=== PATIENT | female | born 1965 | race Caucasian/White ===

== ENCOUNTER 2021-03-30 14:05 | Inpatient (IN) ==
[2021-03-30 14:54] LABS: Basophils # 0.1 K/mcL (0.0-0.2); Basophils % 0.3 %; Eosinophils # 0.3 K/mcL (0.0-0.6); Eosinophils % 2.1 %; Hematocrit 43.3 % (35.3-44.9); Hemoglobin 14.3 g/dL (11.5-15.4); Immature Granulocytes % 0.6 % (0-4); Lymphocytes # 2.5 K/mcL (0.6-4.6); Lymphocytes % 16.2 %; Mean Corpuscular Hemoglobin 29.8 pg (28.0-33.3); Mean Corpuscular Volume 90.2 fL (83.0-100.0); Mean Platelet Volume 9.4 fL (9.4-12.4); Monocytes # 0.8 K/mcL (0.0-1.3); Monocytes % 5.2 %; Neutrophils # 11.7 K/mcL (1.6-8.9); Platelet Count 421 K/mcL (140-400); Red Cell Distribution Width 13.1 % (11.5-14.5); Segmented Neutrophils % 75.6 %; White Blood Count 15.5 K/mcL (4.3-11.1)
[2021-03-30 15:15] LABS: BUN/Creatinine Ratio 17 (6-26); Blood Urea Nitrogen 17 mg/dL (6-20); Calcium 9.2 mg/dL (8.6-10.3); Carbon Dioxide 26 mEq/L (23-29); Chloride 102 mEq/L (98-107); Glucose 101 mg/dL (70-105); Osmolality,Calculated 286 (280-300); Potassium 4.3 mEq/L (3.5-5.1); Sodium 137 mEq/L (136-145); eGFR For African Americans > 60 (> 60); eGFR For Non-African Americans 58 (> 60)
[2021-03-30] MEDS ORDERED: Isovue-370 500 ML BOTTLE IVP ONE (16:58)
[2021-03-30] MEDS ORDERED: *HR* FentaNYL (PF) 100 MCG/2 ML VIAL IVP ONE (17:00)
[2021-03-30] MEDS ORDERED: 0.9 % Sodium Chloride 1,000 ML IVC ONE (17:01)
[2021-03-30 17:43] LABS: Uric Acid 5.8 mg/dL (2.3-7.6)
[2021-03-30] MEDS ORDERED: *HR* HYDROmorphone (PF) 1 MG/ML SYRINGE IVP ONE (18:40)
[2021-03-30] MEDS ORDERED: Piperacillin/Tazobactam 3.375 GM in 0.9 % Sodium Chloride Mini Bag 100 ML IVPB ONE (18:41)
[2021-03-30] MEDS ORDERED: Acetaminophen 325 MG TABLET PO PRN (22:52)
[2021-03-30] MEDS ORDERED: Naloxone 0.4 MG/ML INJ IVP PRN (22:52)
[2021-03-30] MEDS ORDERED: Melatonin 3 MG TABLET PO PRN (22:52)
[2021-03-30] MEDS ORDERED: Gabapentin 300 MG CAPSULE PO PRN (22:55)
[2021-03-30] MEDS ORDERED: Dextrose Gel 15 GM/37.5 ML TUBE PO PRN ×2 (22:56)
[2021-03-30] MEDS ORDERED: D5% in Water 1,000 ML IVC PRN (22:56)
[2021-03-30] MEDS ORDERED: *HR* Dextrose 50 % in Water (Vial) 50 ML VIAL IVP PRN (22:56)
[2021-03-30] MEDS ORDERED: tiZANidine 4 MG TABLET PO PRN (23:04)
[2021-03-30] MEDS: Piperacillin/Tazobactam 3.375 GM in 0.9 % Sodium Chloride Mini Bag 100 ML IVPB SCH (23:16)
[2021-03-30] MEDS: Insulin LISPRO 300 UNITS/3 ML VIAL SUBQ SCH (23:17)
[2021-03-31] MEDS: *HR* OxyCODONE Immed Rel 5 MG TABLET PO PRN ×3 (01:24→20:33)
[2021-03-31 02:04] LABS: Basophils # 0.1 K/mcL (0.0-0.2); Basophils % 0.5 %; Eosinophils # 0.3 K/mcL (0.0-0.6); Eosinophils % 1.8 %; Hematocrit 37.7 % (35.3-44.9); Hemoglobin 12.4 g/dL (11.5-15.4); Immature Granulocytes % 0.8 % (0-4); Lymphocytes # 2.1 K/mcL (0.6-4.6); Lymphocytes % 13.5 %; Mean Corpuscular HGB Conc 32.9 g/dL (31.6-35.5); Mean Corpuscular Volume 91.1 fL (83.0-100.0); Mean Platelet Volume 9.8 fL (9.4-12.4); Monocytes # 0.9 K/mcL (0.0-1.3); Monocytes % 5.8 %; Neutrophils # 12.1 K/mcL (1.6-8.9); Platelet Count 348 K/mcL (140-400); Red Blood Count 4.14 M/mcL (3.82-4.97); Red Cell Distribution Width 13.2 % (11.5-14.5); Segmented Neutrophils % 77.6 %; White Blood Count 15.5 K/mcL (4.3-11.1)
[2021-03-31 02:08] LABS: INR 1.2; Prothrombin Time 13.7 Seconds (9.4-12.1)
[2021-03-31 02:18] LABS: BUN/Creatinine Ratio 17 (6-26); Blood Urea Nitrogen 16 mg/dL (6-20); Calcium 8.2 mg/dL (8.6-10.3); Carbon Dioxide 25 mEq/L (23-29); Chloride 103 mEq/L (98-107); Glucose 147 mg/dL (70-105); Osmolality,Calculated 288 (280-300); Potassium 3.8 mEq/L (3.5-5.1); Sodium 137 mEq/L (136-145); eGFR For African Americans > 60 (> 60); eGFR For Non-African Americans > 60 (> 60)
[2021-03-31] MEDS: *HR* HYDROcodone/Acet 5/325 mg TABLET PO PRN ×3 (05:42→23:03)
[2021-03-31] MEDS: Insulin LISPRO 300 UNITS/3 ML VIAL SUBQ SCH ×4 (05:42→20:37)
[2021-03-31] MEDS ORDERED: Bupivacaine/Clonidine Syringe 20 ML, Syringe LUER-LOK 1 EACH TP ONE (07:45)
[2021-03-31] MEDS: Piperacillin/Tazobactam 3.375 GM in 0.9 % Sodium Chloride Mini Bag 100 ML IVPB SCH ×3 (08:21→23:01)
[2021-03-31] MEDS: Ondansetron 4 MG/2 ML VIAL IVP PRN ×2 (08:45→17:55)
[2021-03-31] MEDS ORDERED: BuPROPion SR (12 HR) 150 MG TABLET PO SCH (09:00)
[2021-03-31] MEDS ORDERED: BISOPROLOL FUMARATE 10 MG PO SCH (09:00)
[2021-03-31] MEDS ORDERED: Lisinopril-HCTZ 20-12.5mg TABLET PO SCH (09:00)
[2021-03-31 11:44] LABS: Estimated Average Glucose 157 mg/dl; Hemoglobin A1C 7.1 %
[2021-03-31] MEDS ORDERED: Nitroglycerin 0.4 MG TAB.SUBL SL PRN ×2 (12:31→18:10)
[2021-03-31] MEDS ORDERED: Naloxone 0.4 MG/ML INJ IVP PRN ×3 (12:31→18:10)
[2021-03-31] MEDS ORDERED: Lidocaine -MPF 2% 2 ML VIAL ONE (12:32)
[2021-03-31] MEDS ORDERED: *HR* FentaNYL (PF) 100 MCG/2 ML VIAL ONE (13:19)
[2021-03-31] MEDS ORDERED: *HR* Midazolam HCl 2 MG/2 ML VIAL ONE (13:46)
[2021-03-31] MEDS ORDERED: *HR* Propofol 200 MG/20 ML VIAL IVP ONE (14:20)
[2021-03-31] MEDS ORDERED: D5% in Water 1,000 ML IVC PRN (18:10)
[2021-03-31] MEDS ORDERED: Melatonin 3 MG TABLET PO PRN (18:10)
[2021-03-31] MEDS ORDERED: Acetaminophen 325 MG TABLET PO PRN (18:10)
[2021-03-31] MEDS ORDERED: Dextrose Gel 15 GM/37.5 ML TUBE PO PRN ×2 (18:10)
[2021-03-31] MEDS ORDERED: *HR* Dextrose 50 % in Water (Vial) 50 ML VIAL IVP PRN (18:10)
[2021-03-31] MEDS: BuPROPion SR (12 HR) 150 MG TABLET PO SCH (20:33)
[2021-04-01] MEDS ORDERED: Insulin LISPRO 300 UNITS/3 ML VIAL SUBQ SCH
[2021-04-01] MEDS: *HR* OxyCODONE Immed Rel 5 MG TABLET PO PRN ×5 (02:38→20:54)
[2021-04-01] MEDS: *HR* HYDROcodone/Acet 5/325 mg TABLET PO PRN (05:08)
[2021-04-01] MEDS: Insulin LISPRO 300 UNITS/3 ML VIAL SUBQ SCH ×4 (07:32→20:55)
[2021-04-01] MEDS: BuPROPion SR (12 HR) 150 MG TABLET PO SCH ×2 (07:49→20:54)
[2021-04-01] MEDS: Lisinopril-HCTZ 20-12.5mg TABLET PO SCH (07:49)
[2021-04-01] MEDS: BISOPROLOL FUMARATE 10 MG PO SCH (07:50)
[2021-04-01] MEDS: Piperacillin/Tazobactam 3.375 GM in 0.9 % Sodium Chloride Mini Bag 100 ML IVPB SCH ×3 (07:50→22:56)
[2021-04-01 10:30] LABS: Basophils % 0.3 %; Eosinophils # 0.2 K/mcL (0.0-0.6); Eosinophils % 1.6 %; Hematocrit 39.2 % (35.3-44.9); Immature Granulocytes % 0.5 % (0-4); Lymphocytes # 1.4 K/mcL (0.6-4.6); Lymphocytes % 10.5 %; Mean Corpuscular HGB Conc 33.2 g/dL (31.6-35.5); Mean Corpuscular Hemoglobin 29.7 pg (28.0-33.3); Mean Corpuscular Volume 89.7 fL (83.0-100.0); Mean Platelet Volume 9.6 fL (9.4-12.4); Monocytes # 0.7 K/mcL (0.0-1.3); Monocytes % 5.2 %; Neutrophils # 10.9 K/mcL (1.6-8.9); Platelet Count 380 K/mcL (140-400); Red Blood Count 4.37 M/mcL (3.82-4.97); Red Cell Distribution Width 12.8 % (11.5-14.5); Segmented Neutrophils % 81.9 %; White Blood Count 13.3 K/mcL (4.3-11.1)
[2021-04-01 10:44] LABS: BUN/Creatinine Ratio 15 (6-26); Blood Urea Nitrogen 13 mg/dL (6-20); Calcium 8.8 mg/dL (8.6-10.3); Carbon Dioxide 26 mEq/L (23-29); Chloride 102 mEq/L (98-107); Glucose 157 mg/dL (70-105); Magnesium 1.6 mg/dL (1.6-2.6); Osmolality,Calculated 285 (280-300); Potassium 3.9 mEq/L (3.5-5.1); Sodium 136 mEq/L (136-145); Vancomycin,Trough 8 mcg/mL (5-10); eGFR For African Americans > 60 (> 60); eGFR For Non-African Americans > 60 (> 60)
[2021-04-01] MEDS ORDERED: Ibuprofen 400 MG TABLET PO PRN (11:01)
[2021-04-01] MEDS: Ketorolac 15 MG/ML VIAL IVP PRN ×2 (13:53→22:17)
[2021-04-01] MEDS: *HR* Heparin 5,000 UNIT/ML VIAL SQ SCH (16:42)
[2021-04-01] MEDS: tiZANidine 4 MG TABLET PO PRN (20:54)
[2021-04-01] MEDS: Melatonin 3 MG TABLET PO SCH (20:54)
[2021-04-01] MEDS: Ondansetron 4 MG/2 ML VIAL IVP PRN (21:34)
[2021-04-02 01:34] LABS: Basophils % 0.3 %; Eosinophils # 0.3 K/mcL (0.0-0.6); Eosinophils % 2.3 %; Hematocrit 35.8 % (35.3-44.9); Immature Granulocytes % 0.5 % (0-4); Lymphocytes # 2.4 K/mcL (0.6-4.6); Lymphocytes % 19.6 %; Mean Corpuscular HGB Conc 33.5 g/dL (31.6-35.5); Mean Corpuscular Volume 89.5 fL (83.0-100.0); Mean Platelet Volume 9.4 fL (9.4-12.4); Monocytes # 0.7 K/mcL (0.0-1.3); Monocytes % 5.9 %; Neutrophils # 8.9 K/mcL (1.6-8.9); Platelet Count 348 K/mcL (140-400); Red Cell Distribution Width 12.5 % (11.5-14.5); Segmented Neutrophils % 71.4 %; White Blood Count 12.4 K/mcL (4.3-11.1)
[2021-04-02 01:55] LABS: BUN/Creatinine Ratio 22 (6-26); Blood Urea Nitrogen 21 mg/dL (6-20); Calcium 8.6 mg/dL (8.6-10.3); Carbon Dioxide 25 mEq/L (23-29); Chloride 105 mEq/L (98-107); Glucose 116 mg/dL (70-105); Magnesium 1.6 mg/dL (1.6-2.6); Osmolality,Calculated 288 (280-300); Sodium 137 mEq/L (136-145); eGFR For African Americans > 60 (> 60); eGFR For Non-African Americans > 60 (> 60)
[2021-04-02] MEDS: *HR* OxyCODONE Immed Rel 5 MG TABLET PO PRN ×4 (03:08→19:25)
[2021-04-02] MEDS: Ondansetron 4 MG/2 ML VIAL IVP PRN ×2 (03:45→13:42)
[2021-04-02] MEDS: *HR* Heparin 5,000 UNIT/ML VIAL SQ SCH ×2 (05:23→17:52)
[2021-04-02] MEDS: Insulin LISPRO 300 UNITS/3 ML VIAL SUBQ SCH ×4 (08:03→20:36)
[2021-04-02] MEDS: Piperacillin/Tazobactam 3.375 GM in 0.9 % Sodium Chloride Mini Bag 100 ML IVPB SCH ×3 (09:14→23:15)
[2021-04-02] MEDS: Lisinopril-HCTZ 20-12.5mg TABLET PO SCH (09:15)
[2021-04-02] MEDS: BISOPROLOL FUMARATE 10 MG PO SCH (09:15)
[2021-04-02] MEDS: BuPROPion SR (12 HR) 150 MG TABLET PO SCH ×2 (09:15→20:37)
[2021-04-02] MEDS: Ketorolac 15 MG/ML VIAL IVP PRN ×2 (11:17→20:37)
[2021-04-02] MEDS: tiZANidine 4 MG TABLET PO PRN ×2 (13:43→20:37)
[2021-04-02] MEDS: Melatonin 3 MG TABLET PO SCH (20:37)
[2021-04-03] MEDS: *HR* OxyCODONE Immed Rel 5 MG TABLET PO PRN ×5 (01:58→20:14)
[2021-04-03] MEDS: tiZANidine 4 MG TABLET PO PRN ×3 (03:25→20:15)
[2021-04-03] MEDS: *HR* Heparin 5,000 UNIT/ML VIAL SQ SCH ×2 (05:09→17:34)
[2021-04-03 06:26] LABS: Basophils % 0.4 %; Eosinophils # 0.3 K/mcL (0.0-0.6); Eosinophils % 2.9 %; Hematocrit 37.4 % (35.3-44.9); Hemoglobin 12.6 g/dL (11.5-15.4); Immature Granulocytes % 0.5 % (0-4); Lymphocytes # 1.8 K/mcL (0.6-4.6); Lymphocytes % 16.3 %; Mean Corpuscular HGB Conc 33.7 g/dL (31.6-35.5); Mean Corpuscular Hemoglobin 29.9 pg (28.0-33.3); Mean Corpuscular Volume 88.8 fL (83.0-100.0); Mean Platelet Volume 9.2 fL (9.4-12.4); Monocytes # 0.7 K/mcL (0.0-1.3); Monocytes % 5.8 %; Neutrophils # 8.4 K/mcL (1.6-8.9); Platelet Count 336 K/mcL (140-400); Red Blood Count 4.21 M/mcL (3.82-4.97); Red Cell Distribution Width 12.5 % (11.5-14.5); Segmented Neutrophils % 74.1 %; White Blood Count 11.3 K/mcL (4.3-11.1)
[2021-04-03 07:07] LABS: BUN/Creatinine Ratio 25 (6-26); Blood Urea Nitrogen 22 mg/dL (6-20); Carbon Dioxide 24 mEq/L (23-29); Chloride 105 mEq/L (98-107); Glucose 161 mg/dL (70-105); Osmolality,Calculated 291 (280-300); Potassium 4.2 mEq/L (3.5-5.1); Sodium 137 mEq/L (136-145); eGFR For African Americans > 60 (> 60); eGFR For Non-African Americans > 60 (> 60)
[2021-04-03] MEDS: Insulin LISPRO 300 UNITS/3 ML VIAL SUBQ SCH ×4 (07:59→20:16)
[2021-04-03] MEDS: BISOPROLOL FUMARATE 10 MG PO SCH (08:01)
[2021-04-03] MEDS: Lisinopril-HCTZ 20-12.5mg TABLET PO SCH (08:01)
[2021-04-03] MEDS: Piperacillin/Tazobactam 3.375 GM in 0.9 % Sodium Chloride Mini Bag 100 ML IVPB SCH (08:01)
[2021-04-03] MEDS: BuPROPion SR (12 HR) 150 MG TABLET PO SCH ×2 (08:01→20:13)
[2021-04-03] MEDS: Ketorolac 15 MG/ML VIAL IVP PRN (10:05)
[2021-04-03 10:49] LABS: Calcium 8.7 mg/dL (8.6-10.3)
[2021-04-03] MEDS: cefTRIAXone 2,000 MG in 0.9 % Sodium Chloride Mini Bag 100 ML IVPB SCH (12:28)
[2021-04-03] MEDS: Ondansetron 4 MG/2 ML VIAL IVP PRN (14:57)
[2021-04-03] MEDS: metroNIDAZOLE 500 MG TABLET PO SCH ×2 (14:57→20:13)
[2021-04-03] MEDS: Gabapentin 300 MG CAPSULE PO PRN (15:00)
[2021-04-03] MEDS: Melatonin 3 MG TABLET PO SCH (20:13)
[2021-04-04] MEDS: *HR* OxyCODONE Immed Rel 5 MG TABLET PO PRN ×4 (01:48→20:04)
[2021-04-04 01:49] LABS: Basophils # 0.1 K/mcL (0.0-0.2); Basophils % 0.5 %; Eosinophils # 0.4 K/mcL (0.0-0.6); Eosinophils % 3.2 %; Hematocrit 37.9 % (35.3-44.9); Hemoglobin 12.7 g/dL (11.5-15.4); Immature Granulocytes % 0.7 % (0-4); Lymphocytes # 2.1 K/mcL (0.6-4.6); Lymphocytes % 19.1 %; Mean Corpuscular HGB Conc 33.5 g/dL (31.6-35.5); Mean Corpuscular Volume 89.4 fL (83.0-100.0); Mean Platelet Volume 9.1 fL (9.4-12.4); Monocytes # 0.7 K/mcL (0.0-1.3); Neutrophils # 7.7 K/mcL (1.6-8.9); Platelet Count 328 K/mcL (140-400); Red Blood Count 4.24 M/mcL (3.82-4.97); Red Cell Distribution Width 12.5 % (11.5-14.5); Segmented Neutrophils % 70.5 %; White Blood Count 10.9 K/mcL (4.3-11.1)
[2021-04-04 02:11] LABS: BUN/Creatinine Ratio 25 (6-26); Blood Urea Nitrogen 22 mg/dL (6-20); Calcium 9.2 mg/dL (8.6-10.3); Carbon Dioxide 26 mEq/L (23-29); Chloride 104 mEq/L (98-107); Glucose 107 mg/dL (70-105); Osmolality,Calculated 290 (280-300); Potassium 4.1 mEq/L (3.5-5.1); Sodium 138 mEq/L (136-145); eGFR For African Americans > 60 (> 60); eGFR For Non-African Americans > 60 (> 60)
[2021-04-04] MEDS: tiZANidine 4 MG TABLET PO PRN ×2 (05:20→20:05)
[2021-04-04] MEDS: *HR* Heparin 5,000 UNIT/ML VIAL SQ SCH ×2 (05:31→18:09)
[2021-04-04] MEDS: Insulin LISPRO 300 UNITS/3 ML VIAL SUBQ SCH ×4 (07:18→20:35)
[2021-04-04] MEDS: BuPROPion SR (12 HR) 150 MG TABLET PO SCH ×2 (08:45→20:05)
[2021-04-04] MEDS: Gabapentin 300 MG CAPSULE PO PRN (08:45)
[2021-04-04] MEDS: Lisinopril-HCTZ 20-12.5mg TABLET PO SCH (08:45)
[2021-04-04] MEDS: metroNIDAZOLE 500 MG TABLET PO SCH ×3 (08:45→20:04)
[2021-04-04] MEDS: cefTRIAXone 2,000 MG in 0.9 % Sodium Chloride Mini Bag 100 ML IVPB SCH (08:45)
[2021-04-04] MEDS: BISOPROLOL FUMARATE 10 MG PO SCH (08:46)
[2021-04-04] MEDS: Ondansetron 4 MG/2 ML VIAL IVP PRN ×2 (11:27→20:04)
[2021-04-04] MEDS ORDERED: *HR* Heparin 10,000 UNIT/10 ML VIAL ONE (14:24)
[2021-04-04] MEDS ORDERED: 0.9 % Sodium Chloride 2,000 ML ONE (14:24)
[2021-04-04] MEDS ORDERED: Heparin 1,000 UNITS/500 mL 500 ML ONE ×2 (14:24→17:00)
[2021-04-04] MEDS ORDERED: *HR* FentaNYL (PF) 100 MCG/2 ML VIAL ONE ×3 (15:35→17:19)
[2021-04-04] MEDS ORDERED: *HR* Midazolam HCl 2 MG/2 ML VIAL ONE ×2 (15:35→16:02)
[2021-04-04] MEDS ORDERED: *HR* Labetalol 100 MG/20 ML MDV ONE (17:35)
[2021-04-04] MEDS ORDERED: *HR* Atropine Sulfate 1 MG/10 ML SYRINGE ONE (18:56)
[2021-04-04] MEDS: Melatonin 3 MG TABLET PO SCH (21:02)
[2021-04-05] MEDS: *HR* OxyCODONE Immed Rel 5 MG TABLET PO PRN ×5 (00:14→21:19)
[2021-04-05 02:24] LABS: Basophils # 0.1 K/mcL (0.0-0.2); Basophils % 0.5 %; Eosinophils # 0.3 K/mcL (0.0-0.6); Eosinophils % 2.1 %; Hematocrit 39.3 % (35.3-44.9); Hemoglobin 13.2 g/dL (11.5-15.4); Immature Granulocytes % 0.8 % (0-4); Lymphocytes # 1.6 K/mcL (0.6-4.6); Lymphocytes % 10.8 %; Mean Corpuscular HGB Conc 33.6 g/dL (31.6-35.5); Mean Corpuscular Hemoglobin 29.8 pg (28.0-33.3); Mean Corpuscular Volume 88.7 fL (83.0-100.0); Mean Platelet Volume 9.1 fL (9.4-12.4); Monocytes # 0.8 K/mcL (0.0-1.3); Monocytes % 5.4 %; Platelet Count 345 K/mcL (140-400); Red Blood Count 4.43 M/mcL (3.82-4.97); Red Cell Distribution Width 12.5 % (11.5-14.5); Segmented Neutrophils % 80.4 %; White Blood Count 14.9 K/mcL (4.3-11.1)
[2021-04-05 02:42] LABS: BUN/Creatinine Ratio 16 (6-26); Blood Urea Nitrogen 15 mg/dL (6-20); Calcium 9.4 mg/dL (8.6-10.3); Carbon Dioxide 24 mEq/L (23-29); Chloride 102 mEq/L (98-107); Glucose 112 mg/dL (70-105); Osmolality,Calculated 284 (280-300); Potassium 3.9 mEq/L (3.5-5.1); Sodium 136 mEq/L (136-145); eGFR For African Americans > 60 (> 60); eGFR For Non-African Americans > 60 (> 60)
[2021-04-05] MEDS: *HR* Heparin 5,000 UNIT/ML VIAL SQ SCH ×2 (05:06→18:06)
[2021-04-05] MEDS: Insulin LISPRO 300 UNITS/3 ML VIAL SUBQ SCH ×4 (07:49→21:17)
[2021-04-05] MEDS: Lisinopril-HCTZ 20-12.5mg TABLET PO SCH (08:43)
[2021-04-05] MEDS: metroNIDAZOLE 500 MG TABLET PO SCH ×3 (08:44→21:17)
[2021-04-05] MEDS: cefTRIAXone 2,000 MG in 0.9 % Sodium Chloride Mini Bag 100 ML IVPB SCH (08:44)
[2021-04-05] MEDS: BuPROPion SR (12 HR) 150 MG TABLET PO SCH ×2 (08:44→21:19)
[2021-04-05] MEDS: BISOPROLOL FUMARATE 10 MG PO SCH (08:44)
[2021-04-05] MEDS: tiZANidine 4 MG TABLET PO PRN (11:18)
[2021-04-05] MEDS: Ondansetron 4 MG/2 ML VIAL IVP PRN (21:14)
[2021-04-05] MEDS: Lactobacillus 1 EACH CAP.SPRINK PO SCH (21:17)
[2021-04-05] MEDS: Melatonin 3 MG TABLET PO SCH (21:18)
[2021-04-05] MEDS: Famotidine 20 MG TABLET PO SCH (21:18)
[2021-04-06] MEDS: *HR* OxyCODONE Immed Rel 5 MG TABLET PO PRN ×5 (01:48→21:12)
[2021-04-06] MEDS: tiZANidine 4 MG TABLET PO PRN ×2 (01:51→17:28)
[2021-04-06 03:29] LABS: Basophils # 0.1 K/mcL (0.0-0.2); Basophils % 0.7 %; Eosinophils # 0.4 K/mcL (0.0-0.6); Eosinophils % 2.8 %; Hematocrit 40.5 % (35.3-44.9); Hemoglobin 13.3 g/dL (11.5-15.4); Immature Granulocytes % 1.1 % (0-4); Lymphocytes # 2.1 K/mcL (0.6-4.6); Lymphocytes % 13.6 %; Mean Corpuscular HGB Conc 32.8 g/dL (31.6-35.5); Mean Corpuscular Hemoglobin 29.2 pg (28.0-33.3); Mean Platelet Volume 9.4 fL (9.4-12.4); Monocytes % 6.3 %; Neutrophils # 11.5 K/mcL (1.6-8.9); Platelet Count 347 K/mcL (140-400); Red Blood Count 4.55 M/mcL (3.82-4.97); Red Cell Distribution Width 12.6 % (11.5-14.5); Segmented Neutrophils % 75.5 %; White Blood Count 15.3 K/mcL (4.3-11.1)
[2021-04-06 03:47] LABS: BUN/Creatinine Ratio 21 (6-26); Blood Urea Nitrogen 21 mg/dL (6-20); Calcium 9.4 mg/dL (8.6-10.3); Carbon Dioxide 23 mEq/L (23-29); Chloride 104 mEq/L (98-107); Glucose 138 mg/dL (70-105); Magnesium 1.6 mg/dL (1.6-2.6); Osmolality,Calculated 287 (280-300); Potassium 3.7 mEq/L (3.5-5.1); Sodium 136 mEq/L (136-145); eGFR For African Americans > 60 (> 60); eGFR For Non-African Americans 58 (> 60)
[2021-04-06] MEDS: BuPROPion SR (12 HR) 150 MG TABLET PO SCH ×2 (08:09→21:12)
[2021-04-06] MEDS: Famotidine 20 MG TABLET PO SCH ×2 (08:09→21:12)
[2021-04-06] MEDS: Lactobacillus 1 EACH CAP.SPRINK PO SCH ×2 (08:10→21:12)
[2021-04-06] MEDS: metroNIDAZOLE 500 MG TABLET PO SCH ×4 (08:10→21:15)
[2021-04-06] MEDS: Lisinopril-HCTZ 20-12.5mg TABLET PO SCH (08:10)
[2021-04-06] MEDS: BISOPROLOL FUMARATE 10 MG PO SCH (08:10)
[2021-04-06] MEDS: *HR* Heparin 5,000 UNIT/ML VIAL SQ SCH ×2 (08:11→17:28)
[2021-04-06] MEDS: Insulin LISPRO 300 UNITS/3 ML VIAL SUBQ SCH ×4 (08:11→21:19)
[2021-04-06] MEDS: cefTRIAXone 2,000 MG in 0.9 % Sodium Chloride Mini Bag 100 ML IVPB SCH (08:11)
[2021-04-06] MEDS ORDERED: Nicotine 14 MG PATCH.TD24 TD SCH (09:00)
[2021-04-06 11:23] LABS: C-Reactive Protein 42 mg/L (Less than 10)
[2021-04-06] MEDS ORDERED: *HR* FentaNYL (PF) 100 MCG/2 ML VIAL ONE (13:08)
[2021-04-06] MEDS ORDERED: Lidocaine -MPF 2% 2 ML VIAL ONE (13:08)
[2021-04-06] MEDS ORDERED: *HR* Midazolam HCl 2 MG/2 ML VIAL ONE (13:09)
[2021-04-06] MEDS ORDERED: Vancomycin 1,000 MG VIAL ONE (13:19)
[2021-04-06] MEDS ORDERED: Lidocaine 1% 0 ML ONE (13:19)
[2021-04-06] MEDS ORDERED: Bupivacaine-MPF 0.25% 10 ML VIAL ONE (13:19)
[2021-04-06] MEDS ORDERED: Dextrose Gel 15 GM/37.5 ML TUBE PO PRN ×2 (15:05)
[2021-04-06] MEDS ORDERED: Naloxone 0.4 MG/ML INJ IVP PRN (15:05)
[2021-04-06] MEDS ORDERED: Nitroglycerin 0.4 MG TAB.SUBL SL PRN (15:05)
[2021-04-06] MEDS ORDERED: Ibuprofen 400 MG TABLET PO PRN (15:05)
[2021-04-06] MEDS ORDERED: D5% in Water 1,000 ML IVC PRN (15:05)
[2021-04-06] MEDS ORDERED: *HR* Dextrose 50 % in Water (Vial) 50 ML VIAL IVP PRN (15:05)
[2021-04-06] MEDS: Melatonin 3 MG TABLET PO SCH (21:12)
[2021-04-06] MEDS ORDERED: *HR* HYDROmorphone 2 MG TABLET PO ONE (23:10)
[2021-04-07] MEDS: Ondansetron 4 MG/2 ML VIAL IVP PRN (00:01)
[2021-04-07] MEDS: *HR* OxyCODONE Immed Rel 5 MG TABLET PO PRN (02:15)
[2021-04-07] MEDS ORDERED: *HR* HYDROmorphone 2 MG TABLET PO PRN ×2 (03:25→08:05)
[2021-04-07] MEDS: *HR* Heparin 5,000 UNIT/ML VIAL SQ SCH ×2 (05:13→18:17)
[2021-04-07 06:58] LABS: Basophils # 0.1 K/mcL (0.0-0.2); Basophils % 0.7 %; Eosinophils # 0.4 K/mcL (0.0-0.6); Eosinophils % 2.7 %; Hematocrit 40.1 % (35.3-44.9); Hemoglobin 13.1 g/dL (11.5-15.4); Immature Granulocytes % 1.2 % (0-4); Lymphocytes # 2.4 K/mcL (0.6-4.6); Lymphocytes % 16.5 %; Mean Corpuscular HGB Conc 32.7 g/dL (31.6-35.5); Mean Corpuscular Volume 88.7 fL (83.0-100.0); Mean Platelet Volume 9.4 fL (9.4-12.4); Monocytes # 0.9 K/mcL (0.0-1.3); Monocytes % 6.1 %; Neutrophils # 10.6 K/mcL (1.6-8.9); Platelet Count 341 K/mcL (140-400); Red Blood Count 4.52 M/mcL (3.82-4.97); Red Cell Distribution Width 12.5 % (11.5-14.5); Segmented Neutrophils % 72.8 %; White Blood Count 14.6 K/mcL (4.3-11.1)
[2021-04-07 07:16] LABS: BUN/Creatinine Ratio 16 (6-26); Blood Urea Nitrogen 16 mg/dL (6-20); Calcium 9.3 mg/dL (8.6-10.3); Carbon Dioxide 26 mEq/L (23-29); Chloride 101 mEq/L (98-107); Glucose 170 mg/dL (70-105); Magnesium 1.5 mg/dL (1.6-2.6); Osmolality,Calculated 283 (280-300); Potassium 3.8 mEq/L (3.5-5.1); Sodium 134 mEq/L (136-145); eGFR For African Americans > 60 (> 60); eGFR For Non-African Americans 60 (> 60)
[2021-04-07] MEDS: BuPROPion SR (12 HR) 150 MG TABLET PO SCH ×2 (08:16→20:09)
[2021-04-07] MEDS: metroNIDAZOLE 500 MG TABLET PO SCH ×2 (08:16→18:18)
[2021-04-07] MEDS: Famotidine 20 MG TABLET PO SCH ×2 (08:16→20:09)
[2021-04-07] MEDS: Lactobacillus 1 EACH CAP.SPRINK PO SCH ×2 (08:16→20:09)
[2021-04-07] MEDS: Nicotine 14 MG PATCH.TD24 TD SCH (08:17)
[2021-04-07] MEDS: Lisinopril-HCTZ 20-12.5mg TABLET PO SCH (08:20)
[2021-04-07] MEDS: Insulin LISPRO 300 UNITS/3 ML VIAL SUBQ SCH ×4 (08:32→20:10)
[2021-04-07] MEDS ORDERED: cefTRIAXone 2,000 MG in 0.9 % Sodium Chloride Mini Bag 100 ML IVPB SCH (09:00)
[2021-04-07] MEDS: Gabapentin 300 MG CAPSULE PO PRN (09:16)
[2021-04-07] MEDS: BISOPROLOL FUMARATE 10 MG PO SCH (12:24)
[2021-04-07] MEDS: *HR* HYDROmorphone 2 MG/ML SYRINGE IVP PRN ×2 (15:58→20:08)
[2021-04-07] MEDS: Piperacillin/Tazobactam 3.375 GM in 0.9 % Sodium Chloride Mini Bag 100 ML IVPB SCH (18:16)
[2021-04-07] MEDS: Melatonin 3 MG TABLET PO SCH (20:09)
[2021-04-08] MEDS: *HR* HYDROmorphone 2 MG/ML SYRINGE IVP PRN ×5 (02:12→19:43)
[2021-04-08] MEDS: *HR* Heparin 5,000 UNIT/ML VIAL SQ SCH ×2 (06:02→18:38)
[2021-04-08] MEDS: Piperacillin/Tazobactam 3.375 GM in 0.9 % Sodium Chloride Mini Bag 100 ML IVPB SCH ×2 (06:02→18:39)
[2021-04-08 07:16] LABS: Basophils # 0.1 K/mcL (0.0-0.2); Basophils % 0.8 %; Eosinophils # 0.4 K/mcL (0.0-0.6); Hematocrit 40.4 % (35.3-44.9); Hemoglobin 13.5 g/dL (11.5-15.4); Immature Granulocytes % 1.2 % (0-4); Lymphocytes # 2.2 K/mcL (0.6-4.6); Lymphocytes % 17.7 %; Mean Corpuscular HGB Conc 33.4 g/dL (31.6-35.5); Mean Corpuscular Hemoglobin 29.5 pg (28.0-33.3); Mean Corpuscular Volume 88.2 fL (83.0-100.0); Mean Platelet Volume 9.5 fL (9.4-12.4); Monocytes # 0.9 K/mcL (0.0-1.3); Monocytes % 6.9 %; Neutrophils # 8.8 K/mcL (1.6-8.9); Platelet Count 391 K/mcL (140-400); Red Blood Count 4.58 M/mcL (3.82-4.97); Red Cell Distribution Width 12.8 % (11.5-14.5); Segmented Neutrophils % 70.4 %; White Blood Count 12.5 K/mcL (4.3-11.1)
[2021-04-08 07:40] LABS: BUN/Creatinine Ratio 20 (6-26); Blood Urea Nitrogen 20 mg/dL (6-20); Calcium 9.2 mg/dL (8.6-10.3); Carbon Dioxide 25 mEq/L (23-29); Chloride 104 mEq/L (98-107); Glucose 141 mg/dL (70-105); Magnesium 1.8 mg/dL (1.6-2.6); Osmolality,Calculated 287 (280-300); Sodium 136 mEq/L (136-145); eGFR For African Americans > 60 (> 60); eGFR For Non-African Americans 56 (> 60)
[2021-04-08] MEDS: Insulin LISPRO 300 UNITS/3 ML VIAL SUBQ SCH ×4 (09:00→20:14)
[2021-04-08] MEDS: BuPROPion SR (12 HR) 150 MG TABLET PO SCH ×2 (09:01→19:44)
[2021-04-08] MEDS: Lactobacillus 1 EACH CAP.SPRINK PO SCH ×2 (09:01→19:45)
[2021-04-08] MEDS: Lisinopril-HCTZ 20-12.5mg TABLET PO SCH (09:01)
[2021-04-08] MEDS: Famotidine 20 MG TABLET PO SCH ×2 (09:01→19:45)
[2021-04-08] MEDS: Nicotine 14 MG PATCH.TD24 TD SCH (09:04)
[2021-04-08] MEDS: BISOPROLOL FUMARATE 10 MG PO SCH (09:04)
[2021-04-08] MEDS: Melatonin 3 MG TABLET PO SCH (19:44)
[2021-04-09] MEDS: *HR* HYDROmorphone 2 MG/ML SYRINGE IVP PRN ×6 (00:57→22:10)
[2021-04-09] MEDS: *HR* Heparin 5,000 UNIT/ML VIAL SQ SCH ×2 (05:10→17:38)
[2021-04-09] MEDS: Piperacillin/Tazobactam 3.375 GM in 0.9 % Sodium Chloride Mini Bag 100 ML IVPB SCH ×2 (05:11→17:38)
[2021-04-09 05:53] LABS: Basophils # 0.1 K/mcL (0.0-0.2); Basophils % 0.6 %; Eosinophils # 0.4 K/mcL (0.0-0.6); Eosinophils % 3.5 %; Immature Granulocytes % 1.2 % (0-4); Lymphocytes # 2.3 K/mcL (0.6-4.6); Mean Corpuscular HGB Conc 33.3 g/dL (31.6-35.5); Mean Corpuscular Hemoglobin 29.4 pg (28.0-33.3); Mean Corpuscular Volume 88.2 fL (83.0-100.0); Mean Platelet Volume 9.5 fL (9.4-12.4); Monocytes # 0.8 K/mcL (0.0-1.3); Monocytes % 6.2 %; Neutrophils # 8.6 K/mcL (1.6-8.9); Platelet Count 431 K/mcL (140-400); Red Blood Count 4.76 M/mcL (3.82-4.97); Red Cell Distribution Width 12.6 % (11.5-14.5); Segmented Neutrophils % 69.5 %; White Blood Count 12.3 K/mcL (4.3-11.1)
[2021-04-09 06:10] LABS: BUN/Creatinine Ratio 31 (6-26); Blood Urea Nitrogen 31 mg/dL (6-20); Calcium 9.5 mg/dL (8.6-10.3); Carbon Dioxide 24 mEq/L (23-29); Chloride 103 mEq/L (98-107); Glucose 153 mg/dL (70-105); Magnesium 1.6 mg/dL (1.6-2.6); Osmolality,Calculated 292 (280-300); Potassium 3.9 mEq/L (3.5-5.1); Sodium 136 mEq/L (136-145); eGFR For African Americans > 60 (> 60); eGFR For Non-African Americans 58 (> 60)
[2021-04-09] MEDS: BuPROPion SR (12 HR) 150 MG TABLET PO SCH ×2 (07:57→20:39)
[2021-04-09] MEDS: Nicotine 14 MG PATCH.TD24 TD SCH (07:57)
[2021-04-09] MEDS: Lactobacillus 1 EACH CAP.SPRINK PO SCH ×2 (07:57→20:39)
[2021-04-09] MEDS: Famotidine 20 MG TABLET PO SCH ×2 (07:57→20:39)
[2021-04-09] MEDS: Lisinopril-HCTZ 20-12.5mg TABLET PO SCH (07:57)
[2021-04-09] MEDS: tiZANidine 4 MG TABLET PO PRN (07:57)
[2021-04-09] MEDS: BISOPROLOL FUMARATE 10 MG PO SCH (08:00)
[2021-04-09] MEDS: Insulin LISPRO 300 UNITS/3 ML VIAL SUBQ SCH ×4 (08:04→20:41)
[2021-04-09] MEDS: Ondansetron 4 MG/2 ML VIAL IVP PRN (14:40)
[2021-04-09] MEDS: Melatonin 3 MG TABLET PO SCH (20:39)
[2021-04-10] MEDS: *HR* HYDROmorphone 2 MG/ML SYRINGE IVP PRN ×2 (02:59→07:39)
[2021-04-10] MEDS: *HR* Heparin 5,000 UNIT/ML VIAL SQ SCH ×2 (05:18→17:03)
[2021-04-10] MEDS: Piperacillin/Tazobactam 3.375 GM in 0.9 % Sodium Chloride Mini Bag 100 ML IVPB SCH (05:18)
[2021-04-10 06:38] LABS: BUN/Creatinine Ratio 36 (6-26); Blood Urea Nitrogen 35 mg/dL (6-20); Calcium 9.7 mg/dL (8.6-10.3); Carbon Dioxide 25 mEq/L (23-29); Chloride 102 mEq/L (98-107); Glucose 146 mg/dL (70-105); Magnesium 1.6 mg/dL (1.6-2.6); Osmolality,Calculated 293 (280-300); Potassium 4.1 mEq/L (3.5-5.1); Sodium 136 mEq/L (136-145); eGFR For African Americans > 60 (> 60); eGFR For Non-African Americans 60 (> 60)
[2021-04-10] MEDS: Lisinopril-HCTZ 20-12.5mg TABLET PO SCH (07:39)
[2021-04-10] MEDS: BuPROPion SR (12 HR) 150 MG TABLET PO SCH ×2 (07:39→21:57)
[2021-04-10] MEDS: Lactobacillus 1 EACH CAP.SPRINK PO SCH ×2 (07:39→21:58)
[2021-04-10] MEDS: Nicotine 14 MG PATCH.TD24 TD SCH (07:39)
[2021-04-10] MEDS: Famotidine 20 MG TABLET PO SCH ×2 (07:39→21:58)
[2021-04-10] MEDS: BISOPROLOL FUMARATE 10 MG PO SCH (07:40)
[2021-04-10] MEDS: Insulin LISPRO 300 UNITS/3 ML VIAL SUBQ SCH ×4 (07:40→22:52)
[2021-04-10] MEDS: *HR* HYDROmorphone 2 MG TABLET PO PRN ×2 (11:32→18:09)
[2021-04-10 12:13] LABS: Basophils # 0.1 K/mcL (0.0-0.2); Basophils % 0.6 %; Eosinophils # 0.4 K/mcL (0.0-0.6); Eosinophils % 2.9 %; Hematocrit 42.6 % (35.3-44.9); Hemoglobin 13.8 g/dL (11.5-15.4); Immature Granulocytes % 0.8 % (0-4); Lymphocytes # 2.7 K/mcL (0.6-4.6); Lymphocytes % 20.5 %; Mean Corpuscular HGB Conc 32.4 g/dL (31.6-35.5); Mean Corpuscular Hemoglobin 29.2 pg (28.0-33.3); Mean Corpuscular Volume 90.1 fL (83.0-100.0); Mean Platelet Volume 9.9 fL (9.4-12.4); Monocytes # 0.8 K/mcL (0.0-1.3); Monocytes % 6.3 %; Platelet Count 464 K/mcL (140-400); Red Blood Count 4.73 M/mcL (3.82-4.97); Red Cell Distribution Width 12.7 % (11.5-14.5); Segmented Neutrophils % 68.9 %; White Blood Count 13.1 K/mcL (4.3-11.1)
[2021-04-10] MEDS: tiZANidine 4 MG TABLET PO PRN ×2 (14:48→22:00)
[2021-04-10] MEDS: metroNIDAZOLE 500 MG TABLET PO SCH ×2 (14:49→21:57)
[2021-04-10] MEDS: cefTRIAXone 2,000 MG in 0.9 % Sodium Chloride Mini Bag 100 ML IVPB SCH (14:49)
[2021-04-10] MEDS: Ondansetron 4 MG/2 ML VIAL IVP PRN (18:24)
[2021-04-10] MEDS: Melatonin 3 MG TABLET PO SCH (21:58)
[2021-04-10] MEDS: Gabapentin 300 MG CAPSULE PO PRN (22:00)
[2021-04-11] MEDS: *HR* HYDROmorphone 2 MG TABLET PO PRN ×3 (00:45→13:37)
[2021-04-11 04:39] LABS: Basophils # 0.1 K/mcL (0.0-0.2); Basophils % 0.6 %; Eosinophils # 0.3 K/mcL (0.0-0.6); Eosinophils % 2.3 %; Hematocrit 39.7 % (35.3-44.9); Hemoglobin 13.6 g/dL (11.5-15.4); Immature Granulocytes % 0.9 % (0-4); Lymphocytes # 3.4 K/mcL (0.6-4.6); Lymphocytes % 24.3 %; Mean Corpuscular HGB Conc 34.3 g/dL (31.6-35.5); Mean Corpuscular Hemoglobin 30.4 pg (28.0-33.3); Mean Corpuscular Volume 88.6 fL (83.0-100.0); Mean Platelet Volume 9.5 fL (9.4-12.4); Monocytes # 0.9 K/mcL (0.0-1.3); Monocytes % 6.5 %; Platelet Count 475 K/mcL (140-400); Red Blood Count 4.48 M/mcL (3.82-4.97); Red Cell Distribution Width 12.5 % (11.5-14.5); Segmented Neutrophils % 65.4 %; White Blood Count 13.8 K/mcL (4.3-11.1)
[2021-04-11 04:53] LABS: BUN/Creatinine Ratio 33 (6-26); Blood Urea Nitrogen 34 mg/dL (6-20); Calcium 9.7 mg/dL (8.6-10.3); Carbon Dioxide 27 mEq/L (23-29); Chloride 101 mEq/L (98-107); Glucose 173 mg/dL (70-105); Magnesium 1.6 mg/dL (1.6-2.6); Osmolality,Calculated 292 (280-300); Potassium 4.3 mEq/L (3.5-5.1); Sodium 135 mEq/L (136-145); eGFR For African Americans > 60 (> 60); eGFR For Non-African Americans 56 (> 60)
[2021-04-11 05:34] LABS: Reactive Lymphocytes Present (Not Present)
[2021-04-11] MEDS: *HR* Heparin 5,000 UNIT/ML VIAL SQ SCH (05:49)
[2021-04-11] MEDS: Famotidine 20 MG TABLET PO SCH (07:23)
[2021-04-11] MEDS: Lactobacillus 1 EACH CAP.SPRINK PO SCH (07:23)
[2021-04-11] MEDS: Gabapentin 300 MG CAPSULE PO PRN ×2 (07:24→15:09)
[2021-04-11] MEDS: metroNIDAZOLE 500 MG TABLET PO SCH ×2 (07:24→15:08)
[2021-04-11] MEDS: BuPROPion SR (12 HR) 150 MG TABLET PO SCH (07:24)
[2021-04-11] MEDS: cefTRIAXone 2,000 MG in 0.9 % Sodium Chloride Mini Bag 100 ML IVPB SCH (07:24)
[2021-04-11] MEDS: Lisinopril-HCTZ 20-12.5mg TABLET PO SCH (07:24)
[2021-04-11] MEDS: Nicotine 14 MG PATCH.TD24 TD SCH (07:25)
[2021-04-11] MEDS: Insulin LISPRO 300 UNITS/3 ML VIAL SUBQ SCH ×2 (09:20→12:27)
[2021-04-11 12:26] VITALS: O2SAT 94
[2021-04-11] MEDS: tiZANidine 4 MG TABLET PO PRN (12:27)
[2021-04-11 14:42] LABS: C-Reactive Protein 19 mg/L (Less than 10)
[2021-04-11 15:01] VITALS: BP 179/78; PULSE 92; TEMP 99
[2021-04-11] MEDS: Ondansetron 4 MG/2 ML VIAL IVP PRN (16:20)
== END 2021-04-11 17:45 | disposition home health service (06) | DRG 617 ==
LOC: 3BNU 14:05 → EMEROOARM 14:05 → SUATTDRO 22:26 → 3BNU 22:55 → SUATTDRO 03-31 15:28 → 2NNU 04-04 17:15 → 3NENU 04-06 09:46
PROVIDERS: ADMIT Family Medicine; ATTEND Pharmacist

== ENCOUNTER 2021-04-20 10:20 | Inpatient (IN) ==
[2021-04-20 11:34] LABS: Basophils # 0.1 K/mcL (0.0-0.2); Basophils % 0.6 %; Eosinophils # 0.5 K/mcL (0.0-0.6); Eosinophils % 2.7 %; Hematocrit 41.1 % (35.3-44.9); Hemoglobin 14.1 g/dL (11.5-15.4); Immature Granulocytes % 0.6 % (0-4); Lymphocytes # 2.6 K/mcL (0.6-4.6); Lymphocytes % 15.1 %; Mean Corpuscular HGB Conc 34.3 g/dL (31.6-35.5); Mean Corpuscular Hemoglobin 30.3 pg (28.0-33.3); Mean Corpuscular Volume 88.4 fL (83.0-100.0); Mean Platelet Volume 9.7 fL (9.4-12.4); Monocytes # 0.9 K/mcL (0.0-1.3); Monocytes % 4.9 %; Neutrophils # 13.2 K/mcL (1.6-8.9); Platelet Count 456 K/mcL (140-400); Red Blood Count 4.65 M/mcL (3.82-4.97); Red Cell Distribution Width 13.1 % (11.5-14.5); Segmented Neutrophils % 76.1 %; White Blood Count 17.4 K/mcL (4.3-11.1)
[2021-04-20] MEDS ORDERED: Isovue-370 500 ML BOTTLE IVP ONE (11:48)
[2021-04-20 11:52] LABS: BUN/Creatinine Ratio 26 (6-26); Blood Urea Nitrogen 25 mg/dL (6-20); C-Reactive Protein 17 mg/L (Less than 10); Calcium 9.5 mg/dL (8.6-10.3); Carbon Dioxide 19 mEq/L (23-29); Chloride 106 mEq/L (98-107); Glucose 136 mg/dL (70-105); Osmolality,Calculated 288 (280-300); Potassium 4.2 mEq/L (3.5-5.1); Sodium 136 mEq/L (136-145); eGFR For African Americans > 60 (> 60); eGFR For Non-African Americans > 60 (> 60)
[2021-04-20] MEDS ORDERED: *HR* FentaNYL (PF) 100 MCG/2 ML VIAL IVP ONE (12:09)
[2021-04-20] MEDS ORDERED: Piperacillin/Tazobactam 3.375 GM in 0.9 % Sodium Chloride Mini Bag 100 ML IVPB ONE (12:16)
[2021-04-20] MEDS ORDERED: Vancomycin 1,250 MG/262.5 ML IV.SOLN IVPB ONE (13:00)
[2021-04-20] MEDS ORDERED: Ondansetron 4 MG/2 ML VIAL IVP ONE (13:10)
[2021-04-20] MEDS ORDERED: *HR* HYDROmorphone (PF) 1 MG/ML SYRINGE IVP ONE (15:25)
[2021-04-20] MEDS ORDERED: Naloxone 0.4 MG/ML INJ IVP PRN ×2 (15:33→15:40)
[2021-04-20] MEDS ORDERED: Ondansetron ODT 4 MG TAB.RAPDIS SL PRN (15:33)
[2021-04-20] MEDS ORDERED: Melatonin 3 MG TABLET PO PRN (15:33)
[2021-04-20] MEDS ORDERED: Mag Hydrox/Al Hydrox/Simeth 30 ML UDC PO PRN (15:33)
[2021-04-20] MEDS ORDERED: D5% in Water 1,000 ML IVC PRN (15:46)
[2021-04-20] MEDS ORDERED: Dextrose Gel 15 GM/37.5 ML TUBE PO PRN ×2 (15:46)
[2021-04-20] MEDS ORDERED: *HR* Dextrose 50 % in Water (Vial) 50 ML VIAL IVP PRN (15:46)
[2021-04-20] MEDS: Piperacillin/Tazobactam 3.375 GM in 0.9 % Sodium Chloride Mini Bag 100 ML IVPB SCH ×2 (17:26→22:49)
[2021-04-20] MEDS: Insulin LISPRO 300 UNITS/3 ML VIAL SUBQ SCH ×2 (17:26→20:35)
[2021-04-20] MEDS: *HR* Heparin 5,000 UNIT/ML VIAL SQ SCH (18:02)
[2021-04-21] MEDS: Vancomycin 1,250 MG/262.5 ML IV.SOLN IVPB SCH ×2 (02:14→15:25)
[2021-04-21] MEDS: *HR* Heparin 5,000 UNIT/ML VIAL SQ SCH (05:24)
[2021-04-21 06:59] LABS: Basophils # 0.1 K/mcL (0.0-0.2); Basophils % 0.6 %; Eosinophils # 0.2 K/mcL (0.0-0.6); Hematocrit 37.4 % (35.3-44.9); Hemoglobin 12.6 g/dL (11.5-15.4); Immature Granulocytes % 0.7 % (0-4); Lymphocytes # 2.7 K/mcL (0.6-4.6); Mean Corpuscular HGB Conc 33.7 g/dL (31.6-35.5); Mean Corpuscular Hemoglobin 29.4 pg (28.0-33.3); Mean Corpuscular Volume 87.4 fL (83.0-100.0); Mean Platelet Volume 9.8 fL (9.4-12.4); Monocytes # 0.7 K/mcL (0.0-1.3); Monocytes % 6.2 %; Neutrophils # 7.9 K/mcL (1.6-8.9); Platelet Count 425 K/mcL (140-400); Red Blood Count 4.28 M/mcL (3.82-4.97); Red Cell Distribution Width 13.1 % (11.5-14.5); Segmented Neutrophils % 67.5 %; White Blood Count 11.8 K/mcL (4.3-11.1)
[2021-04-21 07:23] LABS: BUN/Creatinine Ratio 28 (6-26); Blood Urea Nitrogen 31 mg/dL (6-20); Calcium 8.6 mg/dL (8.6-10.3); Carbon Dioxide 19 mEq/L (23-29); Chloride 106 mEq/L (98-107); Glucose 117 mg/dL (70-105); Osmolality,Calculated 290 (280-300); Potassium 3.8 mEq/L (3.5-5.1); Sodium 136 mEq/L (136-145); eGFR For African Americans > 60 (> 60); eGFR For Non-African Americans 51 (> 60)
[2021-04-21] MEDS: Insulin LISPRO 300 UNITS/3 ML VIAL SUBQ SCH ×4 (08:27→22:18)
[2021-04-21] MEDS: Piperacillin/Tazobactam 3.375 GM in 0.9 % Sodium Chloride Mini Bag 100 ML IVPB SCH ×2 (08:28→22:18)
[2021-04-21] MEDS ORDERED: *HR* HYDROmorphone (PF) 1 MG/ML SYRINGE IVP PRN (08:53)
[2021-04-21] MEDS ORDERED: *HR* Heparin 5,000 UNIT/ML VIAL IVP ONE (12:21)
[2021-04-21] MEDS ORDERED: *HR* Heparin 5,000 UNIT/ML VIAL IVP PRN ×4 (12:21→21:44)
[2021-04-21] MEDS ORDERED: Heparin 25,000UNIT/250ML 1/2NS 25,000 UNIT/250 ML IV.SOLN IVC SCH ×2 (12:30→21:44)
[2021-04-21] MEDS ORDERED: Heparin 1,000 UNITS/500 mL 500 ML ONE ×2 (12:46→13:06)
[2021-04-21] MEDS ORDERED: *HR* FentaNYL (PF) 100 MCG/2 ML VIAL ONE ×4 (13:02→20:20)
[2021-04-21] MEDS ORDERED: *HR* Propofol 200 MG/20 ML VIAL IVP ONE (13:02)
[2021-04-21] MEDS ORDERED: *HR* Rocuronium Bromide 50 MG/5 ML VIAL ONE ×3 (13:03→17:41)
[2021-04-21] MEDS ORDERED: Lidocaine -MPF 2% 2 ML VIAL ONE ×2 (13:03→13:44)
[2021-04-21] MEDS ORDERED: *HR* Succinylcholine 200 MG/10 ML VIAL IVP ONE (13:03)
[2021-04-21] MEDS ORDERED: *HR* Phenylephrine 10 MG/ML VIAL ONE (13:05)
[2021-04-21] MEDS ORDERED: ceFAZolin 1,000 MG, Sodium Chloride IRRigation 1,000 ML IR ONE ×2 (14:00→21:44)
[2021-04-21 14:03] LABS: INR 1.2
[2021-04-21 14:05] LABS: Heparin anti-factor XA UFH < 0.04 IU/mL (0.30-0.70)
[2021-04-21] MEDS ORDERED: *HR* Midazolam HCl 2 MG/2 ML VIAL ONE (14:12)
[2021-04-21] MEDS ORDERED: Ondansetron 4 MG/2 ML VIAL ONE (15:03)
[2021-04-21] MEDS ORDERED: Gabapentin 300 MG CAPSULE PO PRN ×2 (16:03→21:44)
[2021-04-21] MEDS ORDERED: tiZANidine 4 MG TABLET PO PRN (16:03)
[2021-04-21] MEDS ORDERED: *HR* Heparin 5,000 UNIT/ML VIAL ONE (16:32)
[2021-04-21] MEDS ORDERED: Sugammadex Sodium 200 MG/2 ML VIAL IV ONE (19:11)
[2021-04-21] MEDS ORDERED: Naloxone 0.4 MG/ML INJ IVP PRN ×5 (19:52→21:44)
[2021-04-21] MEDS ORDERED: Albuterol 2.5 MG/3 ML NEBULIZER IH PRN ×2 (19:52→21:44)
[2021-04-21] MEDS ORDERED: Ondansetron 4 MG/2 ML VIAL IVP PRN ×2 (19:52→21:44)
[2021-04-21] MEDS ORDERED: *HR* Labetalol 20 MG/4 ML SYRINGE IVP PRN ×2 (19:52→21:44)
[2021-04-21] MEDS ORDERED: Nitroglycerin 0.4 MG TAB.SUBL SL PRN ×2 (19:52→21:44)
[2021-04-21] MEDS: *HR* FentaNYL (PF) 100 MCG/2 ML VIAL IVP PRN ×4 (20:20→20:45)
[2021-04-21] MEDS: *HR* HYDROmorphone (PF) 1 MG/ML SYRINGE IVP PRN ×4 (20:54→23:41)
[2021-04-21] MEDS ORDERED: Famotidine 20 MG TABLET PO SCH (21:00)
[2021-04-21] MEDS ORDERED: BuPROPion SR (12 HR) 150 MG TABLET PO SCH (21:00)
[2021-04-21] MEDS ORDERED: Mag Hydrox/Al Hydrox/Simeth 30 ML UDC PO PRN (21:44)
[2021-04-21] MEDS ORDERED: Dextrose Gel 15 GM/37.5 ML TUBE PO PRN ×2 (21:44)
[2021-04-21] MEDS ORDERED: D5% in Water 1,000 ML IVC PRN (21:44)
[2021-04-21] MEDS ORDERED: Ondansetron ODT 4 MG TAB.RAPDIS SL PRN (21:44)
[2021-04-21] MEDS ORDERED: *HR* Dextrose 50 % in Water (Vial) 50 ML VIAL IVP PRN (21:44)
[2021-04-21] MEDS ORDERED: *HR* FentaNYL (PF) 100 MCG/2 ML VIAL IVP PRN (21:44)
[2021-04-21] MEDS: tiZANidine 4 MG TABLET PO PRN (22:53)
[2021-04-22] MEDS: Piperacillin/Tazobactam 3.375 GM in 0.9 % Sodium Chloride Mini Bag 100 ML IVPB SCH ×3 (01:04→16:47)
[2021-04-22] MEDS ORDERED: Morphine Sulfate 2 MG/ML SYRINGE IVP PRN (02:29)
[2021-04-22] MEDS: Vancomycin 1,250 MG/262.5 ML IV.SOLN IVPB SCH ×3 (02:39→14:52)
[2021-04-22] MEDS ORDERED: Morphine Sulfate 2 MG/ML SYRINGE IVP ONE (02:50)
[2021-04-22 02:53] LABS: Basophils % 0.3 %; Hematocrit 30.9 % (35.3-44.9); Immature Granulocytes % 0.5 % (0-4); Lymphocytes % 6.4 %; Mean Corpuscular Hemoglobin 29.4 pg (28.0-33.3); Mean Platelet Volume 9.9 fL (9.4-12.4); Monocytes # 0.7 K/mcL (0.0-1.3); Monocytes % 4.6 %; Neutrophils # 13.3 K/mcL (1.6-8.9); Platelet Count 348 K/mcL (140-400); Red Blood Count 3.47 M/mcL (3.82-4.97); Red Cell Distribution Width 13.1 % (11.5-14.5); Segmented Neutrophils % 88.2 %; White Blood Count 15.1 K/mcL (4.3-11.1)
[2021-04-22 02:54] LABS: Hemoglobin 10.2 g/dL (11.5-15.4)
[2021-04-22 03:12] LABS: BUN/Creatinine Ratio 28 (6-26); Blood Urea Nitrogen 28 mg/dL (6-20); Calcium 7.4 mg/dL (8.6-10.3); Carbon Dioxide 16 mEq/L (23-29); Chloride 106 mEq/L (98-107); Glucose 288 mg/dL (70-105); Osmolality,Calculated 294 (280-300); Potassium 3.7 mEq/L (3.5-5.1); Sodium 134 mEq/L (136-145); eGFR For African Americans > 60 (> 60); eGFR For Non-African Americans 57 (> 60)
[2021-04-22] MEDS: *HR* HYDROmorphone (PF) 1 MG/ML SYRINGE IVP PRN ×5 (04:35→20:57)
[2021-04-22] MEDS: Bisoprolol/HCTZ 5/6.25 TABLET PO SCH (08:00)
[2021-04-22] MEDS: Famotidine 20 MG TABLET PO SCH ×2 (08:00→20:58)
[2021-04-22] MEDS: BuPROPion SR (12 HR) 150 MG TABLET PO SCH ×2 (08:00→20:58)
[2021-04-22] MEDS: lisinopriL 20 MG TABLET PO SCH (08:01)
[2021-04-22] MEDS: Insulin LISPRO 300 UNITS/3 ML VIAL SUBQ SCH ×4 (08:19→20:58)
[2021-04-22] MEDS ORDERED: lisinopriL 20 MG TABLET PO SCH (09:00)
[2021-04-22] MEDS ORDERED: Bisoprolol/HCTZ 5/6.25 TABLET PO SCH (09:00)
[2021-04-22] MEDS ORDERED: Lisinopril-HCTZ 20-12.5mg TABLET PO SCH (09:00)
[2021-04-22] MEDS: tiZANidine 4 MG TABLET PO PRN (10:29)
[2021-04-22] MEDS: Aspirin Enteric Coated 81 MG Tablet PO SCH (12:31)
[2021-04-22] MEDS: Melatonin 3 MG TABLET PO PRN (22:22)
[2021-04-23] MEDS: Piperacillin/Tazobactam 3.375 GM in 0.9 % Sodium Chloride Mini Bag 100 ML IVPB SCH ×3 (00:37→17:14)
[2021-04-23] MEDS: Vancomycin 1,250 MG/262.5 ML IV.SOLN IVPB SCH ×2 (00:52→12:26)
[2021-04-23] MEDS: *HR* HYDROmorphone (PF) 1 MG/ML SYRINGE IVP PRN ×5 (00:57→19:48)
[2021-04-23] MEDS: Bisoprolol/HCTZ 5/6.25 TABLET PO SCH (09:57)
[2021-04-23] MEDS: Famotidine 20 MG TABLET PO SCH ×2 (09:57→20:02)
[2021-04-23] MEDS: BuPROPion SR (12 HR) 150 MG TABLET PO SCH ×2 (09:57→20:02)
[2021-04-23] MEDS: Insulin LISPRO 300 UNITS/3 ML VIAL SUBQ SCH ×4 (09:58→20:01)
[2021-04-23] MEDS: Aspirin Enteric Coated 81 MG Tablet PO SCH (09:58)
[2021-04-23] MEDS: lisinopriL 20 MG TABLET PO SCH (10:12)
[2021-04-23] MEDS: Melatonin 3 MG TABLET PO PRN (20:02)
[2021-04-23] MEDS: tiZANidine 4 MG TABLET PO PRN (20:03)
[2021-04-24] MEDS: Piperacillin/Tazobactam 3.375 GM in 0.9 % Sodium Chloride Mini Bag 100 ML IVPB SCH ×2 (00:28→09:35)
[2021-04-24] MEDS: Vancomycin 1,250 MG/262.5 ML IV.SOLN IVPB SCH ×2 (00:29→13:29)
[2021-04-24] MEDS: *HR* HYDROmorphone (PF) 1 MG/ML SYRINGE IVP PRN ×6 (01:57→23:41)
[2021-04-24 03:54] LABS: Hematocrit 27.4 % (35.3-44.9); Hemoglobin 9.1 g/dL (11.5-15.4); Mean Corpuscular HGB Conc 33.2 g/dL (31.6-35.5); Mean Corpuscular Hemoglobin 29.6 pg (28.0-33.3); Mean Corpuscular Volume 89.3 fL (83.0-100.0); Platelet Count 293 K/mcL (140-400); Red Blood Count 3.07 M/mcL (3.82-4.97); Red Cell Distribution Width 12.9 % (11.5-14.5); White Blood Count 12.3 K/mcL (4.3-11.1)
[2021-04-24 04:24] LABS: BUN/Creatinine Ratio 18 (6-26); Blood Urea Nitrogen 14 mg/dL (6-20); Calcium 7.8 mg/dL (8.6-10.3); Carbon Dioxide 22 mEq/L (23-29); Chloride 106 mEq/L (98-107); Glucose 181 mg/dL (70-105); Osmolality,Calculated 289 (280-300); Potassium 3.5 mEq/L (3.5-5.1); Sodium 137 mEq/L (136-145); eGFR For African Americans > 60 (> 60); eGFR For Non-African Americans > 60 (> 60)
[2021-04-24] MEDS: lisinopriL 20 MG TABLET PO SCH (09:28)
[2021-04-24] MEDS: Bisoprolol/HCTZ 5/6.25 TABLET PO SCH (09:33)
[2021-04-24] MEDS: Aspirin Enteric Coated 81 MG Tablet PO SCH (09:33)
[2021-04-24] MEDS: BuPROPion SR (12 HR) 150 MG TABLET PO SCH ×2 (09:33→19:43)
[2021-04-24] MEDS: Famotidine 20 MG TABLET PO SCH ×2 (09:34→19:43)
[2021-04-24] MEDS: Insulin LISPRO 300 UNITS/3 ML VIAL SUBQ SCH ×3 (10:00→17:48)
[2021-04-24 11:15] LABS: % Iron Saturation 6 % (15-50); Iron 13 mcg/dL (50-170); Transferrin 155 mg/dL (203-362)
[2021-04-24 11:31] LABS: Ferritin 371 ng/mL (10-120)
[2021-04-24] MEDS: metroNIDAZOLE 500 MG TABLET PO SCH ×2 (15:33→19:44)
[2021-04-24] MEDS: Iron Sucrose Complex 250 MG in 0.9 % Sodium Chloride 250 ML IVPB SCH (16:13)
[2021-04-24] MEDS: cefTRIAXone 2,000 MG in 0.9 % Sodium Chloride Mini Bag 100 ML IVPB SCH (18:49)
[2021-04-24] MEDS: Lactobacillus 1 EACH CAP.SPRINK PO SCH (19:43)
[2021-04-25 01:03] LABS: Hematocrit 28.4 % (35.3-44.9); Hemoglobin 9.5 g/dL (11.5-15.4); Mean Corpuscular HGB Conc 33.5 g/dL (31.6-35.5); Mean Corpuscular Hemoglobin 29.8 pg (28.0-33.3); Platelet Count 331 K/mcL (140-400); Red Blood Count 3.19 M/mcL (3.82-4.97); Red Cell Distribution Width 12.7 % (11.5-14.5); White Blood Count 11.1 K/mcL (4.3-11.1)
[2021-04-25 01:23] LABS: BUN/Creatinine Ratio 15 (6-26); Blood Urea Nitrogen 10 mg/dL (6-20); Calcium 8.1 mg/dL (8.6-10.3); Carbon Dioxide 21 mEq/L (23-29); Chloride 108 mEq/L (98-107); Glucose 145 mg/dL (70-105); Osmolality,Calculated 290 (280-300); Potassium 3.5 mEq/L (3.5-5.1); Sodium 139 mEq/L (136-145); eGFR For African Americans > 60 (> 60); eGFR For Non-African Americans > 60 (> 60)
[2021-04-25] MEDS: Vancomycin 1,250 MG/262.5 ML IV.SOLN IVPB SCH ×2 (02:45→12:17)
[2021-04-25] MEDS: Insulin LISPRO 300 UNITS/3 ML VIAL SUBQ SCH ×5 (02:50→20:41)
[2021-04-25] MEDS: *HR* HYDROmorphone (PF) 1 MG/ML SYRINGE IVP PRN ×5 (04:07→20:30)
[2021-04-25] MEDS: Aspirin Enteric Coated 81 MG Tablet PO SCH (08:09)
[2021-04-25] MEDS: Famotidine 20 MG TABLET PO SCH ×2 (08:09→20:20)
[2021-04-25] MEDS: BuPROPion SR (12 HR) 150 MG TABLET PO SCH ×2 (08:09→20:20)
[2021-04-25] MEDS: Bisoprolol/HCTZ 5/6.25 TABLET PO SCH (08:13)
[2021-04-25] MEDS: lisinopriL 20 MG TABLET PO SCH (08:13)
[2021-04-25] MEDS: Iron Sucrose Complex 250 MG in 0.9 % Sodium Chloride 250 ML IVPB SCH (08:17)
[2021-04-25] MEDS: Lactobacillus 1 EACH CAP.SPRINK PO SCH ×2 (08:17→20:20)
[2021-04-25] MEDS: metroNIDAZOLE 500 MG TABLET PO SCH ×3 (08:17→20:20)
[2021-04-25] MEDS: cefTRIAXone 2,000 MG in 0.9 % Sodium Chloride Mini Bag 100 ML IVPB SCH (16:27)
[2021-04-26] MEDS: *HR* HYDROmorphone (PF) 1 MG/ML SYRINGE IVP PRN ×4 (00:30→20:49)
[2021-04-26] MEDS: Vancomycin 1,250 MG/262.5 ML IV.SOLN IVPB SCH (00:34)
[2021-04-26 05:16] LABS: Basophils # 0.1 K/mcL (0.0-0.2); Basophils % 0.5 %; Eosinophils # 0.7 K/mcL (0.0-0.6); Eosinophils % 5.7 %; Hematocrit 29.6 % (35.3-44.9); Hemoglobin 9.6 g/dL (11.5-15.4); Immature Granulocytes % 0.7 % (0-4); Lymphocytes # 1.8 K/mcL (0.6-4.6); Lymphocytes % 15.3 %; Mean Corpuscular HGB Conc 32.4 g/dL (31.6-35.5); Mean Corpuscular Hemoglobin 28.9 pg (28.0-33.3); Mean Corpuscular Volume 89.2 fL (83.0-100.0); Mean Platelet Volume 9.6 fL (9.4-12.4); Monocytes # 0.9 K/mcL (0.0-1.3); Monocytes % 7.8 %; Neutrophils # 8.4 K/mcL (1.6-8.9); Platelet Count 417 K/mcL (140-400); Red Blood Count 3.32 M/mcL (3.82-4.97); Red Cell Distribution Width 12.8 % (11.5-14.5)
[2021-04-26 05:32] LABS: BUN/Creatinine Ratio 18 (6-26); Blood Urea Nitrogen 12 mg/dL (6-20); Calcium 8.7 mg/dL (8.6-10.3); Carbon Dioxide 21 mEq/L (23-29); Chloride 108 mEq/L (98-107); Glucose 146 mg/dL (70-105); Osmolality,Calculated 288 (280-300); Potassium 3.8 mEq/L (3.5-5.1); Sodium 138 mEq/L (136-145); eGFR For African Americans > 60 (> 60); eGFR For Non-African Americans > 60 (> 60)
[2021-04-26] MEDS: Aspirin Enteric Coated 81 MG Tablet PO SCH (08:47)
[2021-04-26] MEDS: BuPROPion SR (12 HR) 150 MG TABLET PO SCH ×2 (08:47→20:53)
[2021-04-26] MEDS: lisinopriL 20 MG TABLET PO SCH (08:48)
[2021-04-26] MEDS: Lactobacillus 1 EACH CAP.SPRINK PO SCH ×2 (08:48→20:53)
[2021-04-26] MEDS: Famotidine 20 MG TABLET PO SCH ×2 (08:48→20:53)
[2021-04-26] MEDS: Bisoprolol/HCTZ 5/6.25 TABLET PO SCH (08:48)
[2021-04-26] MEDS: Insulin LISPRO 300 UNITS/3 ML VIAL SUBQ SCH ×4 (08:49→20:54)
[2021-04-26] MEDS ORDERED: *HR* HYDROmorphone PF 0.5 MG/0.5 ML SYRINGE IVP PRN (11:47)
[2021-04-26] MEDS ORDERED: Ondansetron 4 MG/2 ML VIAL IVP PRN ×2 (11:47→15:13)
[2021-04-26] MEDS ORDERED: *HR* FentaNYL (PF) 100 MCG/2 ML VIAL IVP PRN ×2 (11:47→15:13)
[2021-04-26] MEDS ORDERED: Bupivacaine/EPI 1:200k 0.25% 50 ML VIAL ONE (12:15)
[2021-04-26] MEDS: metroNIDAZOLE 500 MG TABLET PO SCH ×3 (12:25→20:57)
[2021-04-26] MEDS: Iron Sucrose Complex 250 MG in 0.9 % Sodium Chloride 250 ML IVPB SCH (12:27)
[2021-04-26] MEDS ORDERED: Lidocaine -MPF 2% 2 ML VIAL ONE (12:44)
[2021-04-26] MEDS ORDERED: Ondansetron 4 MG/2 ML VIAL ONE (12:44)
[2021-04-26] MEDS ORDERED: *HR* Succinylcholine 200 MG/10 ML VIAL IVP ONE (12:44)
[2021-04-26] MEDS ORDERED: Lidocaine -MPF 4% 5 ML AMPUL ONE (12:44)
[2021-04-26] MEDS ORDERED: *HR* FentaNYL (PF) 100 MCG/2 ML VIAL ONE ×2 (12:44→13:34)
[2021-04-26] MEDS ORDERED: *HR* Rocuronium Bromide 50 MG/5 ML VIAL ONE (12:44)
[2021-04-26] MEDS ORDERED: *HR* Propofol 200 MG/20 ML VIAL IVP ONE (12:44)
[2021-04-26] MEDS ORDERED: Vancomycin 1,000 MG VIAL ONE (12:50)
[2021-04-26] MEDS ORDERED: Lidocaine 1% 20 ML MDV ONE (13:15)
[2021-04-26] MEDS ORDERED: EPHEDrine 50 MG/ML VIAL ONE (13:22)
[2021-04-26] MEDS ORDERED: *HR* Midazolam HCl 2 MG/2 ML VIAL ONE (13:22)
[2021-04-26] MEDS ORDERED: Ondansetron ODT 4 MG TAB.RAPDIS SL PRN (15:13)
[2021-04-26] MEDS ORDERED: Dextrose Gel 15 GM/37.5 ML TUBE PO PRN ×2 (15:13)
[2021-04-26] MEDS ORDERED: *HR* Heparin 5,000 UNIT/ML VIAL IVP PRN (15:13)
[2021-04-26] MEDS ORDERED: *HR* Labetalol 20 MG/4 ML SYRINGE IVP PRN (15:13)
[2021-04-26] MEDS ORDERED: Nitroglycerin 0.4 MG TAB.SUBL SL PRN (15:13)
[2021-04-26] MEDS ORDERED: Naloxone 0.4 MG/ML INJ IVP PRN ×3 (15:13)
[2021-04-26] MEDS ORDERED: Mag Hydrox/Al Hydrox/Simeth 30 ML UDC PO PRN (15:13)
[2021-04-26] MEDS ORDERED: Melatonin 3 MG TABLET PO PRN (15:13)
[2021-04-26] MEDS ORDERED: D5% in Water 1,000 ML IVC PRN (15:13)
[2021-04-26] MEDS ORDERED: *HR* HYDROmorphone (PF) 1 MG/ML SYRINGE IVP PRN (15:19)
[2021-04-26] MEDS ORDERED: *HR* Dextrose 50 % in Water (Syg) 50 ML SYRINGE IVP PRN (15:25)
[2021-04-26] MEDS: cefTRIAXone 2,000 MG in 0.9 % Sodium Chloride Mini Bag 100 ML IVPB SCH (17:24)
[2021-04-26] MEDS: tiZANidine 4 MG TABLET PO PRN (19:32)
[2021-04-26] MEDS ORDERED: Ringers Solution, Lactated 1,000 ML IVC ONE (20:21)
[2021-04-26] MEDS ORDERED: Morphine Sulfate 2 MG/ML SYRINGE IVP ONE (20:21)
[2021-04-27] MEDS: *HR* HYDROmorphone (PF) 1 MG/ML SYRINGE IVP PRN ×3 (00:57→09:06)
[2021-04-27 05:01] LABS: Basophils # 0.1 K/mcL (0.0-0.2); Basophils % 0.3 %; Eosinophils # 0.2 K/mcL (0.0-0.6); Eosinophils % 1.4 %; Hematocrit 26.8 % (35.3-44.9); Hemoglobin 8.9 g/dL (11.5-15.4); Immature Granulocytes % 0.9 % (0-4); Lymphocytes # 2.1 K/mcL (0.6-4.6); Lymphocytes % 12.6 %; Mean Corpuscular HGB Conc 33.2 g/dL (31.6-35.5); Mean Corpuscular Hemoglobin 29.5 pg (28.0-33.3); Mean Corpuscular Volume 88.7 fL (83.0-100.0); Mean Platelet Volume 9.7 fL (9.4-12.4); Monocytes # 1.3 K/mcL (0.0-1.3); Monocytes % 7.5 %; Neutrophils # 13.1 K/mcL (1.6-8.9); Platelet Count 421 K/mcL (140-400); Red Blood Count 3.02 M/mcL (3.82-4.97); Segmented Neutrophils % 77.3 %
[2021-04-27 05:20] LABS: BUN/Creatinine Ratio 25 (6-26); Blood Urea Nitrogen 19 mg/dL (6-20); Calcium 8.6 mg/dL (8.6-10.3); Carbon Dioxide 19 mEq/L (23-29); Chloride 108 mEq/L (98-107); Glucose 165 mg/dL (70-105); Osmolality,Calculated 290 (280-300); Potassium 4.1 mEq/L (3.5-5.1); Sodium 137 mEq/L (136-145); eGFR For African Americans > 60 (> 60); eGFR For Non-African Americans > 60 (> 60)
[2021-04-27] MEDS: BuPROPion SR (12 HR) 150 MG TABLET PO SCH ×2 (07:48→20:44)
[2021-04-27] MEDS: Aspirin Enteric Coated 81 MG Tablet PO SCH (07:48)
[2021-04-27] MEDS: Lactobacillus 1 EACH CAP.SPRINK PO SCH ×2 (07:48→20:44)
[2021-04-27] MEDS: Famotidine 20 MG TABLET PO SCH ×2 (07:49→20:44)
[2021-04-27] MEDS: metroNIDAZOLE 500 MG TABLET PO SCH ×3 (07:49→20:44)
[2021-04-27] MEDS: Bisoprolol/HCTZ 5/6.25 TABLET PO SCH (07:49)
[2021-04-27] MEDS: lisinopriL 20 MG TABLET PO SCH (07:49)
[2021-04-27] MEDS: Insulin LISPRO 300 UNITS/3 ML VIAL SUBQ SCH ×4 (08:03→20:37)
[2021-04-27] MEDS: Gabapentin 300 MG CAPSULE PO PRN ×2 (11:48→23:24)
[2021-04-27] MEDS: tiZANidine 4 MG TABLET PO PRN ×2 (12:53→20:44)
[2021-04-27] MEDS ORDERED: *HR* HYDROmorphone (PF) 1 MG/ML SYRINGE IVP ONE (16:10)
[2021-04-27] MEDS: cefTRIAXone 2,000 MG in 0.9 % Sodium Chloride Mini Bag 100 ML IVPB SCH (16:20)
[2021-04-27] MEDS: *HR* Rivaroxaban 15 MG TABLET PO SCH (20:49)
[2021-04-27] MEDS ORDERED: Vancomycin 1,250 MG/262.5 ML IV.SOLN IVPB SCH (21:00)
[2021-04-28] MEDS: tiZANidine 4 MG TABLET PO PRN ×3 (01:36→14:46)
[2021-04-28] MEDS: Famotidine 20 MG TABLET PO SCH (08:02)
[2021-04-28] MEDS: BuPROPion SR (12 HR) 150 MG TABLET PO SCH (08:02)
[2021-04-28] MEDS: Aspirin Enteric Coated 81 MG Tablet PO SCH (08:02)
[2021-04-28] MEDS: *HR* Rivaroxaban 15 MG TABLET PO SCH (08:02)
[2021-04-28] MEDS: metroNIDAZOLE 500 MG TABLET PO SCH ×2 (08:03→14:46)
[2021-04-28] MEDS: Bisoprolol/HCTZ 5/6.25 TABLET PO SCH (08:03)
[2021-04-28 08:05] LABS: Basophils # 0.1 K/mcL (0.0-0.2); Basophils % 0.5 %; Eosinophils # 0.7 K/mcL (0.0-0.6); Hematocrit 28.2 % (35.3-44.9); Hemoglobin 9.1 g/dL (11.5-15.4); Immature Granulocytes % 1.3 % (0-4); Lymphocytes # 2.3 K/mcL (0.6-4.6); Lymphocytes % 15.3 %; Mean Corpuscular HGB Conc 32.3 g/dL (31.6-35.5); Mean Corpuscular Hemoglobin 29.5 pg (28.0-33.3); Mean Corpuscular Volume 91.6 fL (83.0-100.0); Mean Platelet Volume 9.6 fL (9.4-12.4); Monocytes % 6.9 %; Neutrophils # 10.4 K/mcL (1.6-8.9); Platelet Count 444 K/mcL (140-400); Red Blood Count 3.08 M/mcL (3.82-4.97); Red Cell Distribution Width 13.6 % (11.5-14.5); White Blood Count 14.7 K/mcL (4.3-11.1)
[2021-04-28] MEDS: Insulin LISPRO 300 UNITS/3 ML VIAL SUBQ SCH ×2 (08:06→12:48)
[2021-04-28] MEDS: lisinopriL 20 MG TABLET PO SCH (08:06)
[2021-04-28 08:22] LABS: BUN/Creatinine Ratio 22 (6-26); Blood Urea Nitrogen 17 mg/dL (6-20); Calcium 8.9 mg/dL (8.6-10.3); Carbon Dioxide 21 mEq/L (23-29); Chloride 108 mEq/L (98-107); Glucose 153 mg/dL (70-105); Osmolality,Calculated 291 (280-300); Potassium 3.8 mEq/L (3.5-5.1); Sodium 138 mEq/L (136-145); eGFR For African Americans > 60 (> 60); eGFR For Non-African Americans > 60 (> 60)
[2021-04-28] MEDS: Lactobacillus 1 EACH CAP.SPRINK PO SCH (12:48)
[2021-04-28 14:32] LABS: Adenovirus Not Detected (Not Detect); Bordetella Pertussis Not Detected (Not Detect); Chlamydophila pneumoniae Not Detected (Not Detect); Coronavirus 229E Not Detected (Not Detect); Coronavirus HKU1 Not Detected (Not Detect); Coronavirus NL63 Not Detected (Not Detect); Coronavirus OC43 Not Detected (Not Detect); Human Metapneumovirus Not Detected (Not Detect); Human Rhinovirus/Enterovirus Not Detected (Not Detect); Influenza A Subtype 2009 H1 Not Detected (Not Detect); Influenza B Not Detected (Not Detect); Mycoplasma pneumoniae Not Detected (Not Detect); Parainfluenza Virus 1 Not Detected (Not Detect); Parainfluenza Virus 2 Not Detected (Not Detect); Parainfluenza Virus 3 Not Detected (Not Detect); Parainfluenza Virus 4 Not Detected (Not Detect); Respiratory Syncytial Virus Not Detected (Not Detect); SARS-CoV-2 Not Detected (Not Detect)
[2021-04-28 16:57] VITALS: BP 121/72; PULSE 84; TEMP 98.8; O2SAT 98
== END 2021-04-28 18:00 | DRG 464 ==
LOC: 2ANU 10:20 → EMEROOARM 10:20 → SUATTDRO 16:46 → 2ANU 17:26 → SUATTDRO 04-21 12:26 → 2NNU 04-21 21:50 → 3NENU 04-22 21:26 → 4WAOSI 04-26 14:15
PROVIDERS: ADMIT Family Medicine; ATTEND Family Medicine

== ENCOUNTER 2022-03-19 10:26 | Inpatient (IN) ==
[2022-03-19] MEDS ORDERED: Piperacillin/Tazobactam 3.375 GM in 0.9 % Sodium Chloride Mini Bag 100 ML IVPB ONE (11:40)
[2022-03-19] MEDS ORDERED: Clindamycin 900 MG/50 ML 900 MG/50 ML IV.SOLN IVPB ONE (11:42)
[2022-03-19] MEDS ORDERED: *HR* HYDROmorphone (PF) 1 MG/ML SYRINGE IVP STA ×2 (11:46→14:01)
[2022-03-19] MEDS ORDERED: Vancomycin 1,250 MG/262.5 ML IV.SOLN IVPB ONE (12:00)
[2022-03-19 12:01] LABS: Bacteria,Urine Few per hpf (None-Few); Bilirubin,Urine Negative (Negative); Blood,Urine Large (Negative); Clarity,Urine Turbid (Clear); Color,Urine Yellow (Yellow); Glucose,Urine (UA) Normal (Normal); Ketones,Urine Negative (Negative); Leukocyte Esterase,Urine Large (Negative); Mucus,Urine Few per lpf (None-Few); Nitrite,Urine Negative (Negative); Protein,Urine 70 mg/dL (Neg-Trace); RBC,Urine TNTC per hpf (0-3); Specific Gravity,Urine 1.024 (1.010-1.025); Squamous Epithelial Cell,Urine Few per hpf (None-Few); Urobilinogen,Urine Normal (Normal); WBC,Urine TNTC per hpf (0-3)
[2022-03-19 12:13] LABS: Basophils # 0.1 K/mcL (0.0-0.2); Basophils % 0.4 %; Eosinophils # 0.2 K/mcL (0.0-0.6); Eosinophils % 1.1 %; Hematocrit 37.6 % (35.3-44.9); Hemoglobin 11.6 g/dL (11.5-15.4); Immature Granulocytes % 0.9 % (0-4); Lymphocytes # 1.9 K/mcL (0.6-4.6); Lymphocytes % 11.9 %; Mean Corpuscular HGB Conc 30.9 g/dL (31.6-35.5); Mean Corpuscular Hemoglobin 24.3 pg (28.0-33.3); Mean Corpuscular Volume 78.7 fL (83.0-100.0); Mean Platelet Volume 9.2 fL (9.4-12.4); Monocytes % 6.2 %; Neutrophils # 12.7 K/mcL (1.6-8.9); Platelet Count 601 K/mcL (140-400); Red Blood Count 4.78 M/mcL (3.82-4.97); Red Cell Distribution Width 14.7 % (11.5-14.5); Segmented Neutrophils % 79.5 %; White Blood Count 15.9 K/mcL (4.3-11.1)
[2022-03-19 12:17] LABS: INR 1.1; Prothrombin Time 12.2 Seconds (9.4-12.1)
[2022-03-19 12:19] LABS: Activated Partial Thrombo Time 35.7 Seconds (26.0-36.0)
[2022-03-19 12:37] LABS: Alanine Aminotransferase 10 Units/L (7-52); Albumin 3.8 g/dL (3.5-5.7); Alkaline Phosphatase 101 Units/L (34-104); Aspartate Amino Transferase 9 Units/L (13-39); BUN/Creatinine Ratio 17 (6-26); Bilirubin,Indirect 0.3 mg/dL (0.0-1.0); Bilirubin,Total 0.3 mg/dL (0.3-1.0); Blood Urea Nitrogen 12 mg/dL (6-20); C-Reactive Protein 72 mg/L (Less than 10); Calcium 9.1 mg/dL (8.6-10.3); Carbon Dioxide 25 mEq/L (23-29); Chloride 100 mEq/L (98-107); Globulin 3.8 g/dL (2.4-3.5); Glucose 185 mg/dL (70-105); Magnesium 1.1 mg/dL (1.6-2.6); Osmolality,Calculated 287 (280-300); Phosphorous 3.1 mg/dL (2.7-4.5); Potassium 4.2 mEq/L (3.5-5.1); Sodium 136 mEq/L (136-145); Total Protein 7.6 g/dL (6.4-8.9); Troponin I < 0.03 ng/mL (< 0.04); eGFR For African Americans > 60 (> 60); eGFR For Non-African Americans > 60 (> 60)
[2022-03-19 12:58] LABS: Influenza A PCR Negative (Negative); Influenza B PCR Negative (Negative); Resp. Syncytial Virus PCR Negative (Negative)
[2022-03-19 13:23] LABS: SARS-CoV-2 by PCR (In House) Negative (Negative)
[2022-03-19] MEDS: 0.9 % Sodium Chloride 1,000 ML IVC SCH (13:33)
[2022-03-19] MEDS ORDERED: Naloxone 0.4 MG/ML INJ IVP PRN (14:03)
[2022-03-19] MEDS ORDERED: Ondansetron 4 MG/2 ML VIAL IVP PRN (14:03)
[2022-03-19] MEDS ORDERED: Melatonin 3 MG TABLET PO PRN (14:03)
[2022-03-19] MEDS: *HR* OxyCODONE/APAP 10/325 TABLET PO PRN ×2 (17:40→21:43)
[2022-03-19] MEDS: *HR* Heparin 5,000 UNIT/ML VIAL SQ SCH (21:39)
[2022-03-19] MEDS: 0.9 % Sodium Chloride w KCl 20 MEQ/1,000 ML MLS IVC SCH (21:40)
[2022-03-20] MEDS ORDERED: Ketorolac 30 MG/ML VIAL IVP ONE (00:17)
[2022-03-20] MEDS: Cefepime HCl 2,000 MG in 0.9 % Sodium Chloride 10 ML IVP SCH ×2 (01:25→08:17)
[2022-03-20] MEDS: Vancomycin 1,250 MG/262.5 ML IV.SOLN IVPB SCH ×2 (02:27→11:20)
[2022-03-20] MEDS: *HR* OxyCODONE/APAP 10/325 TABLET PO PRN ×4 (03:05→21:49)
[2022-03-20 06:28] LABS: BUN/Creatinine Ratio 22 (6-26); Blood Urea Nitrogen 16 mg/dL (6-20); Calcium 8.5 mg/dL (8.6-10.3); Carbon Dioxide 25 mEq/L (23-29); Chloride 105 mEq/L (98-107); Glucose 145 mg/dL (70-105); Magnesium 1.2 mg/dL (1.6-2.6); Osmolality,Calculated 292 (280-300); Potassium 4.1 mEq/L (3.5-5.1); Sodium 139 mEq/L (136-145); eGFR For African Americans > 60 (> 60); eGFR For Non-African Americans > 60 (> 60)
[2022-03-20] MEDS: *HR* Heparin 5,000 UNIT/ML VIAL SQ SCH ×3 (06:32→21:54)
[2022-03-20] MEDS: 0.9 % Sodium Chloride w KCl 20 MEQ/1,000 ML MLS IVC SCH (07:17)
[2022-03-20] MEDS: 0.9 % Sodium Chloride 1,000 ML IVC SCH (07:17)
[2022-03-20 09:47] LABS: Basophils # 0.1 K/mcL (0.0-0.2); Basophils % 0.5 %; Eosinophils # 0.2 K/mcL (0.0-0.6); Eosinophils % 1.6 %; Immature Granulocytes % 0.7 % (0-4); Lymphocytes # 2.2 K/mcL (0.6-4.6); Lymphocytes % 15.1 %; Mean Corpuscular HGB Conc 31.7 g/dL (31.6-35.5); Mean Corpuscular Hemoglobin 24.7 pg (28.0-33.3); Mean Corpuscular Volume 77.9 fL (83.0-100.0); Monocytes % 6.9 %; Neutrophils # 11.2 K/mcL (1.6-8.9); Platelet Count 498 K/mcL (140-400); Red Blood Count 4.34 M/mcL (3.82-4.97); Red Cell Distribution Width 14.8 % (11.5-14.5); Segmented Neutrophils % 75.2 %; White Blood Count 14.8 K/mcL (4.3-11.1)
[2022-03-20] MEDS: BuPROPion SR (12 HR) 150 MG TABLET PO SCH ×2 (09:47→21:50)
[2022-03-20] MEDS: Gabapentin 300 MG CAPSULE PO SCH ×3 (09:47→21:49)
[2022-03-20 09:48] LABS: Hematocrit 33.7 % (35.3-44.9)
[2022-03-20] MEDS: BISOPROLOL FUMARATE 10 MG PO SCH (09:48)
[2022-03-20 09:58] LABS: Hemoglobin 10.6 g/dL (11.5-15.4)
[2022-03-20] MEDS: *HR* HYDROmorphone (PF) 1 MG/ML SYRINGE IVP PRN ×2 (10:39→18:39)
[2022-03-20] MEDS ORDERED: D5% in Water 1,000 ML IVC PRN (15:04)
[2022-03-20] MEDS ORDERED: Dextrose Gel 15 GM/37.5 ML TUBE PO PRN ×2 (15:04)
[2022-03-20] MEDS ORDERED: *HR* Dextrose 50 % in Water (Syg) 50 ML SYRINGE IVP PRN (15:04)
[2022-03-20] MEDS ORDERED: *HR* HYDROmorphone (PF) 1 MG/ML SYRINGE IVP PRN (16:00)
[2022-03-20] MEDS: Insulin LISPRO 300 UNITS/3 ML VIAL SUBQ SCH ×2 (18:20→21:51)
[2022-03-21] MEDS ORDERED: *HR* HYDROcodone/Acet 7.5/325 mg TABLET PO ONE (00:02)
[2022-03-21 03:48] LABS: Basophils # 0.1 K/mcL (0.0-0.2); Basophils % 0.5 %; Eosinophils # 0.3 K/mcL (0.0-0.6); Eosinophils % 1.9 %; Hematocrit 36.5 % (35.3-44.9); Hemoglobin 11.3 g/dL (11.5-15.4); Lymphocytes # 1.9 K/mcL (0.6-4.6); Mean Corpuscular Hemoglobin 24.5 pg (28.0-33.3); Monocytes # 0.9 K/mcL (0.0-1.3); Monocytes % 6.4 %; Neutrophils # 11.3 K/mcL (1.6-8.9); Platelet Count 543 K/mcL (140-400); Red Blood Count 4.62 M/mcL (3.82-4.97); Red Cell Distribution Width 14.9 % (11.5-14.5); Segmented Neutrophils % 77.2 %; White Blood Count 14.6 K/mcL (4.3-11.1)
[2022-03-21 04:04] LABS: BUN/Creatinine Ratio 22 (6-26); Blood Urea Nitrogen 15 mg/dL (6-20); Calcium 8.9 mg/dL (8.6-10.3); Carbon Dioxide 22 mEq/L (23-29); Chloride 103 mEq/L (98-107); Glucose 222 mg/dL (70-105); Osmolality,Calculated 288 (280-300); Potassium 4.2 mEq/L (3.5-5.1); Sodium 135 mEq/L (136-145)
[2022-03-21] MEDS: *HR* HYDROmorphone (PF) 1 MG/ML SYRINGE IVP PRN ×3 (04:08→20:24)
[2022-03-21] MEDS: *HR* Heparin 5,000 UNIT/ML VIAL SQ SCH ×3 (05:29→20:29)
[2022-03-21] MEDS: *HR* OxyCODONE/APAP 10/325 TABLET PO PRN ×2 (06:38→13:29)
[2022-03-21] MEDS: Insulin LISPRO 300 UNITS/3 ML VIAL SUBQ SCH ×4 (08:12→22:20)
[2022-03-21] MEDS: Gabapentin 300 MG CAPSULE PO SCH ×3 (08:13→20:25)
[2022-03-21] MEDS: BuPROPion SR (12 HR) 150 MG TABLET PO SCH ×2 (08:13→20:26)
[2022-03-21] MEDS: BISOPROLOL FUMARATE 10 MG PO SCH (08:14)
[2022-03-21] MEDS ORDERED: Lidocaine -MPF 1% 5 ML AMPUL INFILT ONE (14:22)
[2022-03-21] MEDS ORDERED: *HR* HYDROcodone/Acet 7.5/325 mg TABLET PO PRN (15:58)
[2022-03-21] MEDS: Cefepime HCl 2,000 MG in 0.9 % Sodium Chloride Mini Bag 100 ML IVPB SCH (16:37)
[2022-03-21] MEDS: Vancomycin 1,250 MG/262.5 ML IV.SOLN IVPB SCH (16:38)
[2022-03-21] MEDS: *HR* OxyCODONE/APAP 7.5/325 TABLET PO PRN ×2 (17:19→21:39)
[2022-03-21] MEDS: Vancomycin Oral Soln 125 MG/2.5 ML UDC PO SCH (20:25)
[2022-03-21] MEDS: metroNIDAZOLE 500 MG TABLET PO SCH (20:26)
[2022-03-22] MEDS: Cefepime HCl 2,000 MG in 0.9 % Sodium Chloride Mini Bag 100 ML IVPB SCH ×3 (00:10→17:12)
[2022-03-22] MEDS: *HR* OxyCODONE/APAP 7.5/325 TABLET PO PRN ×5 (02:32→21:51)
[2022-03-22] MEDS: *HR* HYDROmorphone (PF) 1 MG/ML SYRINGE IVP PRN ×2 (05:35→14:28)
[2022-03-22 05:36] LABS: Basophils # 0.1 K/mcL (0.0-0.2); Basophils % 0.6 %; Eosinophils # 0.3 K/mcL (0.0-0.6); Eosinophils % 2.8 %; Hematocrit 33.5 % (35.3-44.9); Hemoglobin 10.4 g/dL (11.5-15.4); Lymphocytes # 2.3 K/mcL (0.6-4.6); Lymphocytes % 19.7 %; Mean Corpuscular Hemoglobin 24.4 pg (28.0-33.3); Mean Corpuscular Volume 78.6 fL (83.0-100.0); Mean Platelet Volume 9.1 fL (9.4-12.4); Monocytes # 0.9 K/mcL (0.0-1.3); Monocytes % 7.7 %; Platelet Count 505 K/mcL (140-400); Red Blood Count 4.26 M/mcL (3.82-4.97); Red Cell Distribution Width 14.6 % (11.5-14.5); Segmented Neutrophils % 68.2 %; White Blood Count 11.7 K/mcL (4.3-11.1)
[2022-03-22] MEDS: Vancomycin 1,250 MG/262.5 ML IV.SOLN IVPB SCH ×2 (05:55→18:22)
[2022-03-22 05:56] LABS: BUN/Creatinine Ratio 26 (6-26); Blood Urea Nitrogen 19 mg/dL (6-20); Calcium 8.9 mg/dL (8.6-10.3); Carbon Dioxide 26 mEq/L (23-29); Chloride 103 mEq/L (98-107); Glucose 172 mg/dL (70-105); Osmolality,Calculated 290 (280-300); Potassium 4.3 mEq/L (3.5-5.1); Sodium 137 mEq/L (136-145)
[2022-03-22] MEDS: *HR* Heparin 5,000 UNIT/ML VIAL SQ SCH ×3 (05:56→21:52)
[2022-03-22] MEDS: metroNIDAZOLE 500 MG TABLET PO SCH ×3 (09:00→21:52)
[2022-03-22] MEDS: Gabapentin 300 MG CAPSULE PO SCH ×3 (09:00→21:52)
[2022-03-22] MEDS: Vancomycin Oral Soln 125 MG/2.5 ML UDC PO SCH ×2 (09:00→21:51)
[2022-03-22] MEDS: BuPROPion SR (12 HR) 150 MG TABLET PO SCH ×2 (09:00→21:52)
[2022-03-22] MEDS: Insulin LISPRO 300 UNITS/3 ML VIAL SUBQ SCH ×4 (09:10→21:43)
[2022-03-22] MEDS: BISOPROLOL FUMARATE 10 MG PO SCH (11:20)
[2022-03-22] MEDS: Insulin DETEMIR 100 UNIT/ML X5UNITS SUBQ SCH (21:52)
[2022-03-23] MEDS: *HR* HYDROmorphone (PF) 1 MG/ML SYRINGE IVP PRN ×3 (01:01→18:16)
[2022-03-23] MEDS: Cefepime HCl 2,000 MG in 0.9 % Sodium Chloride Mini Bag 100 ML IVPB SCH ×3 (01:40→18:10)
[2022-03-23] MEDS: *HR* OxyCODONE/APAP 7.5/325 TABLET PO PRN ×5 (03:44→22:49)
[2022-03-23] MEDS: *HR* Heparin 5,000 UNIT/ML VIAL SQ SCH ×3 (05:52→20:50)
[2022-03-23 06:17] LABS: Basophils # 0.1 K/mcL (0.0-0.2); Basophils % 0.6 %; Eosinophils # 0.3 K/mcL (0.0-0.6); Eosinophils % 2.4 %; Hematocrit 33.8 % (35.3-44.9); Hemoglobin 10.4 g/dL (11.5-15.4); Immature Granulocytes % 1.4 % (0-4); Lymphocytes # 2.1 K/mcL (0.6-4.6); Lymphocytes % 15.4 %; Mean Corpuscular HGB Conc 30.8 g/dL (31.6-35.5); Mean Corpuscular Hemoglobin 24.1 pg (28.0-33.3); Mean Corpuscular Volume 78.2 fL (83.0-100.0); Mean Platelet Volume 8.9 fL (9.4-12.4); Monocytes % 7.1 %; Neutrophils # 9.9 K/mcL (1.6-8.9); Platelet Count 523 K/mcL (140-400); Red Blood Count 4.32 M/mcL (3.82-4.97); Red Cell Distribution Width 14.6 % (11.5-14.5); Segmented Neutrophils % 73.1 %; White Blood Count 13.6 K/mcL (4.3-11.1)
[2022-03-23 06:23] LABS: BUN/Creatinine Ratio 28 (6-26); Blood Urea Nitrogen 21 mg/dL (6-20); Calcium 8.9 mg/dL (8.6-10.3); Carbon Dioxide 26 mEq/L (23-29); Chloride 104 mEq/L (98-107); Glucose 175 mg/dL (70-105); Osmolality,Calculated 287 (280-300); Potassium 4.4 mEq/L (3.5-5.1); Sodium 135 mEq/L (136-145)
[2022-03-23] MEDS: metroNIDAZOLE 500 MG TABLET PO SCH ×3 (08:09→20:50)
[2022-03-23] MEDS: Vancomycin Oral Soln 125 MG/2.5 ML UDC PO SCH ×2 (08:09→20:51)
[2022-03-23] MEDS: Gabapentin 300 MG CAPSULE PO SCH ×3 (08:09→20:50)
[2022-03-23] MEDS: Vancomycin 1,500 MG/265 ML IV.SOLN IVPB SCH ×2 (08:10→19:53)
[2022-03-23] MEDS: Insulin LISPRO 300 UNITS/3 ML VIAL SUBQ SCH ×4 (08:10→20:51)
[2022-03-23] MEDS: BuPROPion SR (12 HR) 150 MG TABLET PO SCH ×2 (08:10→20:50)
[2022-03-23] MEDS: Insulin DETEMIR 100 UNIT/ML X5UNITS SUBQ SCH (20:50)
[2022-03-24] MEDS: Cefepime HCl 2,000 MG in 0.9 % Sodium Chloride Mini Bag 100 ML IVPB SCH ×4 (01:09→23:38)
[2022-03-24] MEDS: *HR* HYDROmorphone (PF) 1 MG/ML SYRINGE IVP PRN ×3 (02:32→19:47)
[2022-03-24 04:20] LABS: Basophils # 0.1 K/mcL (0.0-0.2); Basophils % 0.6 %; Eosinophils # 0.4 K/mcL (0.0-0.6); Eosinophils % 2.8 %; Hematocrit 34.8 % (35.3-44.9); Hemoglobin 10.8 g/dL (11.5-15.4); Immature Granulocytes % 2.3 % (0-4); Lymphocytes # 2.4 K/mcL (0.6-4.6); Lymphocytes % 19.2 %; Mean Corpuscular Hemoglobin 24.5 pg (28.0-33.3); Mean Corpuscular Volume 79.1 fL (83.0-100.0); Monocytes # 1.1 K/mcL (0.0-1.3); Monocytes % 8.4 %; Neutrophils # 8.5 K/mcL (1.6-8.9); Platelet Count 507 K/mcL (140-400); Red Cell Distribution Width 14.8 % (11.5-14.5); Segmented Neutrophils % 66.7 %; White Blood Count 12.7 K/mcL (4.3-11.1)
[2022-03-24 04:28] LABS: BUN/Creatinine Ratio 29 (6-26); Blood Urea Nitrogen 22 mg/dL (6-20); Carbon Dioxide 25 mEq/L (23-29); Chloride 104 mEq/L (98-107); Glucose 174 mg/dL (70-105); Osmolality,Calculated 286 (280-300); Potassium 4.3 mEq/L (3.5-5.1); Sodium 134 mEq/L (136-145)
[2022-03-24] MEDS: *HR* OxyCODONE/APAP 7.5/325 TABLET PO PRN ×4 (05:53→23:38)
[2022-03-24] MEDS: *HR* Heparin 5,000 UNIT/ML VIAL SQ SCH ×3 (05:53→21:15)
[2022-03-24] MEDS: Vancomycin 1,500 MG/265 ML IV.SOLN IVPB SCH ×2 (07:07→19:41)
[2022-03-24] MEDS: Vancomycin Oral Soln 125 MG/2.5 ML UDC PO SCH ×2 (09:54→19:41)
[2022-03-24] MEDS: Insulin LISPRO 300 UNITS/3 ML VIAL SUBQ SCH ×4 (09:54→21:16)
[2022-03-24] MEDS: BuPROPion SR (12 HR) 150 MG TABLET PO SCH ×2 (09:55→19:41)
[2022-03-24] MEDS: Gabapentin 300 MG CAPSULE PO SCH ×3 (09:55→19:41)
[2022-03-24] MEDS: metroNIDAZOLE 500 MG TABLET PO SCH ×3 (09:55→19:42)
[2022-03-24] MEDS: Insulin DETEMIR 100 UNIT/ML X5UNITS SUBQ SCH (21:16)
[2022-03-25] MEDS: *HR* HYDROmorphone (PF) 1 MG/ML SYRINGE IVP PRN ×3 (04:08→23:22)
[2022-03-25 04:28] LABS: Basophils # 0.1 K/mcL (0.0-0.2); Basophils % 0.6 %; Eosinophils # 0.4 K/mcL (0.0-0.6); Eosinophils % 2.4 %; Hemoglobin 11.2 g/dL (11.5-15.4); Immature Granulocytes % 2.4 % (0-4); Lymphocytes # 2.4 K/mcL (0.6-4.6); Lymphocytes % 16.1 %; Mean Corpuscular HGB Conc 31.1 g/dL (31.6-35.5); Mean Corpuscular Hemoglobin 24.6 pg (28.0-33.3); Mean Corpuscular Volume 78.9 fL (83.0-100.0); Mean Platelet Volume 8.8 fL (9.4-12.4); Monocytes # 1.1 K/mcL (0.0-1.3); Monocytes % 7.3 %; Neutrophils # 10.5 K/mcL (1.6-8.9); Platelet Count 516 K/mcL (140-400); Red Blood Count 4.56 M/mcL (3.82-4.97); Red Cell Distribution Width 15.1 % (11.5-14.5); Segmented Neutrophils % 71.2 %; White Blood Count 14.7 K/mcL (4.3-11.1)
[2022-03-25 04:44] LABS: BUN/Creatinine Ratio 27 (6-26); Blood Urea Nitrogen 20 mg/dL (6-20); Calcium 9.2 mg/dL (8.6-10.3); Carbon Dioxide 24 mEq/L (23-29); Chloride 104 mEq/L (98-107); Glucose 160 mg/dL (70-105); Magnesium 1.4 mg/dL (1.6-2.6); Osmolality,Calculated 288 (280-300); Phosphorous 3.7 mg/dL (2.7-4.5); Potassium 4.3 mEq/L (3.5-5.1); Sodium 136 mEq/L (136-145)
[2022-03-25] MEDS: Vancomycin 1,500 MG/265 ML IV.SOLN IVPB SCH ×2 (07:03→18:25)
[2022-03-25] MEDS: *HR* Heparin 5,000 UNIT/ML VIAL SQ SCH ×3 (07:04→21:07)
[2022-03-25] MEDS: *HR* OxyCODONE/APAP 7.5/325 TABLET PO PRN ×4 (07:04→21:06)
[2022-03-25] MEDS: Gabapentin 300 MG CAPSULE PO SCH ×3 (08:06→21:06)
[2022-03-25] MEDS: Insulin LISPRO 300 UNITS/3 ML VIAL SUBQ SCH ×4 (08:06→21:07)
[2022-03-25] MEDS: Vancomycin Oral Soln 125 MG/2.5 ML UDC PO SCH ×2 (08:06→21:07)
[2022-03-25] MEDS: BuPROPion SR (12 HR) 150 MG TABLET PO SCH ×2 (08:06→21:06)
[2022-03-25] MEDS: metroNIDAZOLE 500 MG TABLET PO SCH ×3 (08:06→21:06)
[2022-03-25] MEDS: Cefepime HCl 2,000 MG in 0.9 % Sodium Chloride Mini Bag 100 ML IVPB SCH ×2 (09:09→16:39)
[2022-03-25] MEDS: Insulin DETEMIR 100 UNIT/ML X5UNITS SUBQ SCH (21:52)
[2022-03-26] MEDS: *HR* OxyCODONE/APAP 7.5/325 TABLET PO PRN ×5 (03:22→23:03)
[2022-03-26] MEDS: Cefepime HCl 2,000 MG in 0.9 % Sodium Chloride Mini Bag 100 ML IVPB SCH ×4 (04:46→22:11)
[2022-03-26] MEDS: *HR* Heparin 5,000 UNIT/ML VIAL SQ SCH ×3 (04:47→20:39)
[2022-03-26 05:40] LABS: Basophils # 0.1 K/mcL (0.0-0.2); Basophils % 0.9 %; Eosinophils # 0.4 K/mcL (0.0-0.6); Eosinophils % 2.8 %; Hematocrit 35.8 % (35.3-44.9); Hemoglobin 11.1 g/dL (11.5-15.4); Immature Granulocytes % 2.7 % (0-4); Lymphocytes # 2.3 K/mcL (0.6-4.6); Lymphocytes % 16.9 %; Mean Corpuscular Hemoglobin 24.4 pg (28.0-33.3); Mean Corpuscular Volume 78.7 fL (83.0-100.0); Mean Platelet Volume 9.1 fL (9.4-12.4); Monocytes # 1.1 K/mcL (0.0-1.3); Monocytes % 7.9 %; Neutrophils # 9.3 K/mcL (1.6-8.9); Platelet Count 510 K/mcL (140-400); Red Blood Count 4.55 M/mcL (3.82-4.97); Red Cell Distribution Width 15.6 % (11.5-14.5); Segmented Neutrophils % 68.8 %; White Blood Count 13.6 K/mcL (4.3-11.1)
[2022-03-26 06:13] LABS: BUN/Creatinine Ratio 30 (6-26); Blood Urea Nitrogen 21 mg/dL (6-20); Carbon Dioxide 23 mEq/L (23-29); Chloride 103 mEq/L (98-107); Glucose 184 mg/dL (70-105); Magnesium 1.6 mg/dL (1.6-2.6); Osmolality,Calculated 286 (280-300); Phosphorous 3.6 mg/dL (2.7-4.5); Potassium 4.8 mEq/L (3.5-5.1); Sodium 134 mEq/L (136-145)
[2022-03-26] MEDS: Gabapentin 300 MG CAPSULE PO SCH ×3 (07:40→20:40)
[2022-03-26] MEDS: Vancomycin 1,500 MG/265 ML IV.SOLN IVPB SCH ×2 (07:41→19:23)
[2022-03-26] MEDS: BuPROPion SR (12 HR) 150 MG TABLET PO SCH ×2 (07:41→20:40)
[2022-03-26] MEDS: metroNIDAZOLE 500 MG TABLET PO SCH ×3 (07:41→20:40)
[2022-03-26] MEDS: Insulin LISPRO 300 UNITS/3 ML VIAL SUBQ SCH ×4 (07:45→20:39)
[2022-03-26] MEDS: *HR* HYDROmorphone (PF) 1 MG/ML SYRINGE IVP PRN ×2 (09:57→20:40)
[2022-03-26] MEDS: Vancomycin Oral Soln 125 MG/2.5 ML UDC PO SCH ×2 (11:34→20:41)
[2022-03-26] MEDS: Vancomycin 1,250 MG/262.5 ML IV.SOLN IVPB SCH (18:47)
[2022-03-26] MEDS: Insulin DETEMIR 100 UNIT/ML X5UNITS SUBQ SCH (20:40)
[2022-03-27] MEDS: *HR* OxyCODONE/APAP 7.5/325 TABLET PO PRN ×5 (03:08→21:53)
[2022-03-27 04:00] LABS: Basophils # 0.1 K/mcL (0.0-0.2); Basophils % 0.7 %; Eosinophils # 0.4 K/mcL (0.0-0.6); Eosinophils % 2.6 %; Hematocrit 35.6 % (35.3-44.9); Lymphocytes % 22.5 %; Mean Corpuscular HGB Conc 30.9 g/dL (31.6-35.5); Mean Corpuscular Hemoglobin 24.5 pg (28.0-33.3); Mean Corpuscular Volume 79.3 fL (83.0-100.0); Mean Platelet Volume 9.1 fL (9.4-12.4); Monocytes # 1.2 K/mcL (0.0-1.3); Monocytes % 8.6 %; Neutrophils # 8.4 K/mcL (1.6-8.9); Platelet Count 507 K/mcL (140-400); Red Blood Count 4.49 M/mcL (3.82-4.97); Red Cell Distribution Width 15.9 % (11.5-14.5); Segmented Neutrophils % 62.6 %; White Blood Count 13.4 K/mcL (4.3-11.1)
[2022-03-27 04:18] LABS: BUN/Creatinine Ratio 26 (6-26); Blood Urea Nitrogen 19 mg/dL (6-20); Calcium 8.9 mg/dL (8.6-10.3); Carbon Dioxide 25 mEq/L (23-29); Chloride 104 mEq/L (98-107); Glucose 168 mg/dL (70-105); Magnesium 1.5 mg/dL (1.6-2.6); Osmolality,Calculated 286 (280-300); Phosphorous 3.6 mg/dL (2.7-4.5); Potassium 4.6 mEq/L (3.5-5.1); Sodium 135 mEq/L (136-145)
[2022-03-27] MEDS: Cefepime HCl 2,000 MG in 0.9 % Sodium Chloride Mini Bag 100 ML IVPB SCH ×3 (05:00→21:53)
[2022-03-27] MEDS: *HR* HYDROmorphone (PF) 1 MG/ML SYRINGE IVP PRN ×3 (05:00→23:24)
[2022-03-27] MEDS: *HR* Heparin 5,000 UNIT/ML VIAL SQ SCH ×3 (05:01→21:53)
[2022-03-27] MEDS: Vancomycin 1,500 MG/265 ML IV.SOLN IVPB SCH ×2 (06:07→20:02)
[2022-03-27] MEDS: Gabapentin 300 MG CAPSULE PO SCH ×3 (08:08→20:06)
[2022-03-27] MEDS: metroNIDAZOLE 500 MG TABLET PO SCH ×3 (08:08→20:06)
[2022-03-27] MEDS: Vancomycin Oral Soln 125 MG/2.5 ML UDC PO SCH ×2 (08:08→22:13)
[2022-03-27] MEDS: BuPROPion SR (12 HR) 150 MG TABLET PO SCH ×2 (08:09→20:06)
[2022-03-27] MEDS: Insulin LISPRO 300 UNITS/3 ML VIAL SUBQ SCH ×4 (08:09→22:07)
[2022-03-27] MEDS: Insulin DETEMIR 100 UNIT/ML X5UNITS SUBQ SCH (22:08)
[2022-03-28 02:42] LABS: Basophils # 0.1 K/mcL (0.0-0.2); Basophils % 0.7 %; Eosinophils # 0.3 K/mcL (0.0-0.6); Eosinophils % 2.4 %; Hematocrit 35.4 % (35.3-44.9); Hemoglobin 10.9 g/dL (11.5-15.4); Immature Granulocytes % 2.5 % (0-4); Lymphocytes # 2.4 K/mcL (0.6-4.6); Lymphocytes % 18.7 %; Mean Corpuscular HGB Conc 30.8 g/dL (31.6-35.5); Mean Corpuscular Hemoglobin 24.5 pg (28.0-33.3); Mean Corpuscular Volume 79.6 fL (83.0-100.0); Mean Platelet Volume 9.5 fL (9.4-12.4); Monocytes # 1.1 K/mcL (0.0-1.3); Monocytes % 8.5 %; Neutrophils # 8.5 K/mcL (1.6-8.9); Platelet Count 508 K/mcL (140-400); Red Blood Count 4.45 M/mcL (3.82-4.97); Red Cell Distribution Width 15.9 % (11.5-14.5); Segmented Neutrophils % 67.2 %; White Blood Count 12.7 K/mcL (4.3-11.1)
[2022-03-28 03:00] LABS: BUN/Creatinine Ratio 36 (6-26); Blood Urea Nitrogen 27 mg/dL (6-20); Calcium 9.1 mg/dL (8.6-10.3); Carbon Dioxide 26 mEq/L (23-29); Chloride 103 mEq/L (98-107); Glucose 284 mg/dL (70-105); Magnesium 1.7 mg/dL (1.6-2.6); Osmolality,Calculated 293 (280-300); Potassium 4.4 mEq/L (3.5-5.1); Sodium 134 mEq/L (136-145)
[2022-03-28] MEDS: Cefepime HCl 2,000 MG in 0.9 % Sodium Chloride Mini Bag 100 ML IVPB SCH ×3 (04:19→21:49)
[2022-03-28] MEDS: *HR* OxyCODONE/APAP 7.5/325 TABLET PO PRN ×4 (04:45→19:20)
[2022-03-28] MEDS: *HR* Heparin 5,000 UNIT/ML VIAL SQ SCH ×3 (05:50→21:47)
[2022-03-28] MEDS: Vancomycin 1,500 MG/265 ML IV.SOLN IVPB SCH (06:52)
[2022-03-28] MEDS: metroNIDAZOLE 500 MG TABLET PO SCH ×3 (09:07→21:49)
[2022-03-28] MEDS: BuPROPion SR (12 HR) 150 MG TABLET PO SCH ×2 (09:07→21:49)
[2022-03-28] MEDS: Vancomycin Oral Soln 125 MG/2.5 ML UDC PO SCH ×2 (09:08→21:48)
[2022-03-28] MEDS: Gabapentin 300 MG CAPSULE PO SCH ×3 (09:08→21:48)
[2022-03-28] MEDS: Insulin LISPRO 300 UNITS/3 ML VIAL SUBQ SCH ×4 (09:10→21:48)
[2022-03-28] MEDS ORDERED: *HR* HYDROmorphone (PF) 1 MG/ML SYRINGE IVP ONE ×2 (10:05→20:41)
[2022-03-28] MEDS: Vancomycin 1,250 MG/262.5 ML IV.SOLN IVPB SCH (20:21)
[2022-03-28] MEDS ORDERED: Insulin DETEMIR 100 UNIT/ML X5UNITS SUBQ SCH (21:00)
[2022-03-28] MEDS: tiZANidine 4 MG TABLET PO PRN (21:49)
[2022-03-29] MEDS: *HR* OxyCODONE/APAP 7.5/325 TABLET PO PRN ×3 (01:42→11:14)
[2022-03-29] MEDS: Cefepime HCl 2,000 MG in 0.9 % Sodium Chloride Mini Bag 100 ML IVPB SCH (05:37)
[2022-03-29] MEDS: *HR* Heparin 5,000 UNIT/ML VIAL SQ SCH (05:37)
[2022-03-29] MEDS: Vancomycin 1,250 MG/262.5 ML IV.SOLN IVPB SCH (06:32)
[2022-03-29 06:48] LABS: Basophils # 0.1 K/mcL (0.0-0.2); Basophils % 0.6 %; Eosinophils # 0.3 K/mcL (0.0-0.6); Eosinophils % 2.2 %; Hematocrit 35.9 % (35.3-44.9); Hemoglobin 11.3 g/dL (11.5-15.4); Immature Granulocytes % 2.4 % (0-4); Lymphocytes # 2.5 K/mcL (0.6-4.6); Lymphocytes % 18.1 %; Mean Corpuscular HGB Conc 31.5 g/dL (31.6-35.5); Mean Corpuscular Volume 79.4 fL (83.0-100.0); Mean Platelet Volume 9.2 fL (9.4-12.4); Monocytes % 7.4 %; Neutrophils # 9.7 K/mcL (1.6-8.9); Platelet Count 453 K/mcL (140-400); Red Blood Count 4.52 M/mcL (3.82-4.97); Red Cell Distribution Width 16.7 % (11.5-14.5); Segmented Neutrophils % 69.3 %
[2022-03-29 07:18] LABS: BUN/Creatinine Ratio 35 (6-26); Blood Urea Nitrogen 23 mg/dL (6-20); Calcium 9.7 mg/dL (8.6-10.3); Carbon Dioxide 26 mEq/L (23-29); Chloride 102 mEq/L (98-107); Glucose 207 mg/dL (70-105); Magnesium 1.5 mg/dL (1.6-2.6); Osmolality,Calculated 292 (280-300); Phosphorous 3.5 mg/dL (2.7-4.5); Potassium 4.3 mEq/L (3.5-5.1); Sodium 136 mEq/L (136-145)
[2022-03-29 08:02] VITALS: PULSE 84
[2022-03-29] MEDS: BuPROPion SR (12 HR) 150 MG TABLET PO SCH (09:42)
[2022-03-29] MEDS: Gabapentin 300 MG CAPSULE PO SCH (09:42)
[2022-03-29] MEDS: Vancomycin Oral Soln 125 MG/2.5 ML UDC PO SCH (09:42)
[2022-03-29] MEDS: metroNIDAZOLE 500 MG TABLET PO SCH (09:42)
[2022-03-29] MEDS: Insulin LISPRO 300 UNITS/3 ML VIAL SUBQ SCH ×2 (09:44→11:43)
[2022-03-29 10:46] LABS: Estimated Average Glucose 166 mg/dl; Hemoglobin A1C 7.4 %
[2022-03-29] MEDS: tiZANidine 4 MG TABLET PO PRN (11:14)
[2022-03-29 11:38] VITALS: BP 161/93; TEMP 98.9; O2SAT 94
== END 2022-03-29 12:55 | disposition home health service (06) | DRG 637 ==
LOC: EMEROOARM 10:26 → SUATTDRO 17:43 → 3ANU 17:43
PROVIDERS: ADMIT Internal Medicine; ATTEND Family Medicine